=== PATIENT | female | born 1960 | race Two or more races ===

== ENCOUNTER → 2017-12-28 12:53 | Outpatient (CLI) | payer SELFPAY ==
[2017-12-28 12:55] LABS: Mucous, Urine 0 SEEN /hpf (<or=2+)
[2017-12-28 12:58] LABS: Color, Urine Yellow (Yellow); Glucose, Dipstick Normal (Normal); Ketone-Dipstick Negative (Negative); Leukocyte Esterase-Dipstick 500 /ul (Negative); Nitrite-Dipstick Positive (Negative); Occult Blood-Urine 150 /ul (Negative); Protein-Dipstick Negative (Negative); Specific Gravity, Urine 1.005 (1.002-1.030); Urine Bilirubin Dipstick 6 mg/dL (Negative); Urine Clarity Sl. Cloudy (Clear); Urine Urobilinogen 8 mg/dl (Normal)
[2017-12-28 13:09] LABS: Red Blood Cells-Urine 10-25 SEEN /hpf (0-5); White Blood Cells >100 SEEN /hpf (0-5)
[2017-12-28 13:10] LABS: Bacteria 1+ /hpf (None Seen); Squamous Epithelial Cells - UA 5-10 SEEN /hpf (5-10)
== END ==
PROVIDERS: Family Provider Family Medicine; PCP Family Medicine; Visit Provider Internal Medicine
DX: N39.0 Urinary tract infection, site not specified (principal)
CPT/HCPCS: 81001; 87086; 87088; 87186

== ENCOUNTER → 2018-12-16 11:14 | Outpatient (CLI) | payer SELFPAY ==
[2018-12-16 09:06] VITALS: BMI 33.3
[2018-12-16 11:17] LABS: Bacteria 0 SEEN /hpf (None Seen); Mucous, Urine 0 SEEN /hpf (<or=2+); Red Blood Cells-Urine 0 SEEN /hpf (0-5); Squamous Epithelial Cells - UA 0 SEEN /hpf (5-10)
[2018-12-16 12:39] LABS: Glucose, Dipstick Normal (Normal); Ketone-Dipstick Negative (Negative); Leukocyte Esterase-Dipstick 100 /ul (Negative); Nitrite-Dipstick Positive (Negative); Occult Blood-Urine Negative /ul (Negative); Protein-Dipstick Negative (Negative); Urine Clarity Clear (Clear); Urine Urobilinogen 8 mg/dl (Normal)
[2018-12-16 12:49] LABS: Color, Urine SEE COMMENT BELOW (Yellow); Urine Bilirubin Dipstick 6 mg/dL (Negative)
[2018-12-16 12:58] LABS: White Blood Cells 5-10 SEEN /hpf (0-5)
== END ==
PROVIDERS: Family Provider Internal Medicine; PCP Internal Medicine; Visit Provider Nurse Practitioner Family
DX: N30.00 Acute cystitis without hematuria (principal)
CPT/HCPCS: 81001; 87086; 87088; 87186

== ENCOUNTER 2019-03-10 09:30 | Outpatient (RCR) | payer SELFPAY ==
[2018-12-16 09:06] VITALS: BMI 33.3
[2019-02-24 11:20] VITALS: BP 147/85; PULSE 66; RESP 16; TEMP 36.9; BMI 33.3
--- NOTE | 2019-02-24 13:25 | PCM.WC.HP ---
(1) Ulcer of left lower extremity Status: Acute Current Visit: Yes Code(s): L97.929 - Non-pressure chronic ulcer of unspecified part of left lower leg with unspecified severity (2) Venous insufficiency Status: Acute Current Visit: Yes Code(s): I87.2 - Venous insufficiency (chronic) (peripheral) (3) Pain of left lower extremity Status: Acute Current Visit: Yes Code(s): M79.605 - Pain in left leg (4) Lower extremity edema Status: Acute Current Visit: Yes Code(s): R60.0 - Localized edema History of Present Illness Date of Service: 02/24/19 Chief Complaint: ulcer left lateral foot History of Wound: This 58-year-old female was referred to the wound healing center for a nonhealing ulcer to the left lateral foot. She said she noticed the area open a few weeks ago and says that it is stayed about the same since then. She denies noticing any signs of infection to the area. She admits to having compression stockings, but says she does not wear them like she is supposed to. She used to see Dr. Courtney in the past for issues with her veins and they have discussed a vein stripping surgery, however patient has never proceeded with having this done yet. She has been keeping the area dressed. She currently denies any feelings of nausea, vomiting, fever, chills. Past Medical History Past Medical History: Chronic Problems (Last Reviewed 12/28/17 @ 10:21 by Corinna Jackson) Seasonal allergies (Chronic) Allergies/Adverse Reactions: Allergies No Known Allergies Allergy (Verified 02/24/19 11:35) amoxycillin Allergy (Severe, Uncoded 11/06/17 09:00) rash Home Medications: Ambulatory Orders Medication Instructions Recorded Cranberry 400 mg PO DAILY 11/04/16 nitrofurantoin 100 mg PO BID #10 cap 12/16/18 monohydrate/macrocrystals 100 mg capsule Smoking Status: Never smoker Review of Systems Constitutional: Denies: Chills, Fever, Weight Change Cardiovascular: Denies: Chest Pain, Palpitations Respiratory: Denies: Cough, Shortness of Breath Gastrointestinal: Denies: Diarrhea, Nausea, Vomiting Skin: Reports: - - Ulcer left lower leg/foot - Physical Exam Vital Signs Temp Pulse Resp BP 98.4 F 66 16 147/85 H 02/24/19 11:20 02/24/19 11:20 02/24/19 11:20 02/24/19 11:20 General: Alert, Oriented x3, Cooperative, No apparent distress Extremities: No cyanosis, Capillary Refill Less than 3 Seconds, No Calf Tenderness - Negative Darlene and Mg signs, Edema - Bilateral lower extremity edema, Peripheral Pulses Normal - DP and PT pulses palpable bilateral Skin: Ulcer/ Wound - Ulcer to left lateral foot just distal to the left lateral malleolus with fat layer exposed. Base is a mixture of granular tissue, adherent slough, fibrin, biofilm. There is no probing to bone, no tracking, no undermining, no surrounding cellulitis, no significant increase in warmth, and no malodor at this time. There is surrounding hemosiderin skin deposit color change noted. Bilateral lower extremity varicosities noted with left being worse than right. Wound Measurements and Assessment WC - Nurse 1 - General Ulcer Measurement Start: 02/24/19 11:17 Freq: Status: Active Protocol: Activity Type Activity Date Activity User E-Sign Co-Sign Detail Recorded Client Recorded Date Recorded By Document 02/24/19 11:20 [facility] [id number] 02/24/19 11:27 [facility] 02/24/19 11:20 Wound Center Nurse 1 [Ulcer Assessment] #1- L LAT FOOT/ANKLE CLUSTER -Combined with other wound No -Current Size (cm) - Length 0.3 -Current Size (cm) - Width 0.4 -Current Size (cm) - Depth 0.2 -Total Square Cm 0.12 -Date of Last Picture (Recall this 02/24/19 field) -Photo Taken Yes -Epithelialization None Present -Tunneling No -Undermining/Tunneling No -Circular Undermining No -Exudate Amt None Present -Wound Margin Flat & Intact -Granulation Amt None Present (0 %) -Slough/Fibrin Yes -Necrosis Amt Small (1-33%) -Necrotic Tissue Type Eschar -Texture (Tess-wound Skin Appearance) Assessed, Scarring -Moisture (Tess-wound Skin Appearance Assessed,Dry/ ) Scaly -Color (Tess-wound Skin Appearance) Assessed, Erythema -Temperature (Tess-wound Skin No Abnormality Appearance) (Pt Warm) -Tenderness on Palpation (Tess-wound Yes Skin Appearance) -Ulcer Cleansing Rinsed/ Irrigated with Saline -Foul Odor after Cleansing No -Anesthetic Used 5% Lidocaine Gel [Edema Assessment] -Lower Limb Edema Present Yes -Right Calf (cm) 42.5 -Right Ankle (cm) 24 -Left Calf (cm) 41.5 -Left Ankle (cm) 24 BENNY - Nurse 2 - General Ulcer CM Notes Start: 02/24/19 11:17 Freq: Status: Active Protocol: Activity Type Activity Date Activity User E-Sign Co-Sign Detail Recorded Client Recorded Date Recorded By Document 02/24/19 11:40 [id number] 02/24/19 11:41 02/24/19 11:40 Wound Center Nurse 2 [Procedure/Treatment] #1- L LAT FOOT/ANKLE CLUSTER -Time 11:40 -Correct Patient Yes -Correct Side, Site, Position Yes -Correct Procedure Yes -Procedure Performed Yes -Type of Procedure Debridement -Clinical Debridement Subcutaneous -Post Debridement Size (cm) - Length 0.4 -Post Debridement Size (cm) - Width 0.4 -Post Debridement Size (cm) - Depth 0.2 -Total Square Cm 0.16 -Wound/Ulcer Outcome Not Healed -Ulcer Cleansing Rinsed/ Irrigated with Saline -Foul Odor after Cleansing No -Bioengineered Tissue No -Bleeding Controlled with Pressure -Offloading No -Treatment Response Procedure Tolerated Well [See Physician Procedure note for Specifics] Pain Scale: 0-10 Numeric [Pain] -Is Patient Pain Free? Yes Musculoskeletal: Tenderness - With manipulation of ulcer site Neurological: Sensory exam intact to light touch and pain Psych/Mental Status: Normal Affect, Appropriate Debridement Note Post-Debridement Measurements/Treatment - Nurse 2 - General Ulcer CM Notes Start: 02/24/19 11:17 Freq: Status: Active Protocol: Activity Type Activity Date Activity User E-Sign Co-Sign Detail Recorded Client Recorded Date Recorded By Document 02/24/19 11:40 JF [id number] 02/24/19 11:41 02/24/19 11:40 Wound Center Nurse 2 #1- L LAT FOOT/ANKLE CLUSTER -Time 11:40 -Correct Patient Yes -Correct Side, Site, Position Yes -Correct Procedure Yes -Procedure Performed Yes -Type of Procedure Debridement -Clinical Debridement Subcutaneous -Post Debridement Size (cm) - Length 0.4 -Post Debridement Size (cm) - Width 0.4 -Post Debridement Size (cm) - Depth 0.2 -Total Square Cm 0.16 -Wound/Ulcer Outcome Not Healed -Ulcer Cleansing Rinsed/ Irrigated with Saline -Foul Odor after Cleansing No -Bioengineered Tissue No -Bleeding Controlled with Pressure -Offloading No -Treatment Response Procedure Tolerated Well Pain Scale: 0-10 Numeric Is Patient Pain Free? Yes Wound debrided: Left lateral foot Laterality: Left Type of Debridement: Excisional debridement Anesthesia Used: 4% Lidocaine Solution Depth: in the subcutaneous layer Percentage of wound debrided: 100 Instrument Used: - - 1 mm curette Tissue Removed: Adherent slough, fibrin, biofilm Severity: Fat Layer Exposed Amount of bleeding with debridement: Mild Bleeding Controlled with: Pressure Patient tolerated procedure well Assessment/Plan Active Problems (Last Reviewed 12/28/17 @ 10:21 by Corinna Jackson) Ulcer of left lower extremity (Acute) Venous insufficiency (Acute) Pain of left lower extremity (Acute) Lower extremity edema (Acute) Assessment: As noted above Plan: Initial patient examination evaluation was performed. A subcutaneous debridement was performed as noted in the clinical panel. Once complete, and Unna boot applied was applied to the left lower extremity. The importance of keeping the ulcer site offloaded and keeping pressure/friction from the site was discussed in great detail. The importance of lower extremity compression as well as keeping her legs elevated all times while seated or lying down was stressed again as well. Currently there are no signs of local infection, so no cultures or antibiotics were prescribed today. Bilateral venous Doppler examination was ordered and we will continue to monitor for results from this testing. We will also discuss referral to vascular surgery as well. Recommend a diet high in protein to help optimize ulcer healing potential. The patient was educated on all signs and symptoms of local and systemic infection she was instructed to go to the emergency room immediately should she notice any of these. She is also instructed to either call the wound healing center go to the emergency room should she have any issues with her Unna boot. All questions were answered to the patient's satisfaction. The patient will follow back up in clinic with me in 1 week to check on progress, but was instructed to follow-up sooner if needed before then.
--- NOTE | 2019-03-02 09:12 | VDLE_ITS ---
Reason For Study: Edema RIGHT LEFT CFV is compressible, spontaneous, phasic, CFV is compressible, spontaneous, phasic, competent and demonstrates normal competent, and demonstrates normal augmentation. augmentation. FV is compressible, spontaneous, phasic, FV is compressible, spontaneous, phasic, competent and demonstrates normal competent and demonstrates normal augmentation. augmentation. POP V is compressible, spontaneous, phasic, POP V is compressible, spontaneous, phasic, competent and demonstrates normal competent and demonstrates normal augmentation. augmentation. T/P Trunk is compressible. T/P Trunk is compressible. PTV is compressible. PTV is compressible. RT PerV is compressible. LT PerV is compressible. SFJ is competent and measures 0.53 x 0.69 cm. SFJ is INCOMPETENT and measures 1.25 x 1.24 GSV is competent and measures 0.40 x 0.39 cm cm. in prox thigh and 0.21 x 0.23 cm at knee. GSV is INCOMPETENT throughout for greater ASV in upper medial thigh is INCOMPETENT for than 0.5 seconds and measures 0.34 x 0.38 cm greater than 0.5 seconds and measures0.19 x in prox thigh and 0.60 x 0.60 cm at knee. 0.18 cm. INCOMPETENT milk pickup driver noted 12 cm above the SSV is competent and measures 0.24 x 0.24 cm. medial malleolus. Procedure SSV is competent and measures 0.21 x 0.22 cm. Exam performed in department. Patient was scanned in reverse Trendelenburg position during reflux assessment. A preliminary report was called and/or faxed to [facility]. Interpretation Summary Deep veins of the lower extremities are bilaterally patent and compressible segmentally. There is no evidence of deep vein thrombosis on either side. Valvular competence appears intact within the proximal deep venous systems bilaterally. The greater saphenous veins appear bilaterally patent and compressible segmentally. The right sapheno-femoral junction is competent . The left sapheno-femoral junction is incompetent . The right greater saphenous vein appears segmentally competent. The left greater saphenous vein appears segmentally incompetent. Small saphenous veins are patent and competent bilaterally. The right accessory saphenous vein in the upper medial thigh is incompetent. An incompetent milk pickup driver vein is identified in the left calf, located 12 centimeters proximal to the left medial malleolus. Ordering Physician: Ross Thayer Referring Physician: Adrian Muse Performed By: Lexie Faustin RVT
[2019-03-03 11:02] VITALS: BP 149/73; PULSE 65; RESP 18; TEMP 36.6
--- NOTE | 2019-03-03 12:05 | PCM.WC.PN ---
(1) Ulcer of left lower extremity Status: Acute Current Visit: Yes Code(s): L97.929 - Non-pressure chronic ulcer of unspecified part of left lower leg with unspecified severity (2) Venous insufficiency Status: Acute Current Visit: Yes Code(s): I87.2 - Venous insufficiency (chronic) (peripheral) (3) Pain of left lower extremity Status: Acute Current Visit: Yes Code(s): M79.605 - Pain in left leg (4) Lower extremity edema Status: Acute Current Visit: Yes Code(s): R60.0 - Localized edema Type of Wound Date of Service: 03/03/19 Chief Complaint: ulcer left lateral foot History of Wound: This 58-year-old female was referred to the wound healing center for a nonhealing ulcer to the left lateral foot. She said she noticed the area open a few weeks ago and says that it is stayed about the same since then. She denies noticing any signs of infection to the area. She admits to having compression stockings, but says she does not wear them like she is supposed to. She used to see Dr. Courtney in the past for issues with her veins and they have discussed a vein stripping surgery, however patient has never proceeded with having this done yet. She has been keeping the area dressed. She currently denies any feelings of nausea, vomiting, fever, chills. Progress of Wound: Ulcer stable this week. - Physical Exam Vital Signs Temp Pulse Resp BP 98 F 65 18 149/73 H 03/03/19 11:02 03/03/19 11:02 03/03/19 11:02 03/03/19 11:02 General: Alert, Oriented x3, Cooperative, No apparent distress Extremities: No cyanosis, Capillary Refill Less than 3 Seconds, No Calf Tenderness - Negative Darlene and Mg signs, Edema - Bilateral lower extremity edema, Peripheral Pulses Normal - DP and PT pulses palpable bilateral Skin: Ulcer/ Wound - Ulcer to left lateral foot just distal to the left lateral malleolus with fat layer exposed. Base is a mixture of granular tissue, adherent slough, fibrin, biofilm. There is no probing to bone, no tracking, no undermining, no surrounding cellulitis, no significant increase in warmth, and no malodor at this time. There is surrounding hemosiderin skin deposit color change noted. Bilateral lower extremity varicosities noted with left being worse than right. Wound Measurements and Assessment - Nurse 1 - General Ulcer Measurement Start: 02/24/19 11:17 Freq: Status: Active Protocol: Activity Type Activity Date Activity User E-Sign Co-Sign Detail Recorded Client Recorded Date Recorded By Document 03/03/19 11:02 MT [id number] 03/03/19 11:10 [place] 03/03/19 11:02 Wound Center Nurse 1 [Ulcer Assessment] #1- L LAT FOOT/ANKLE CLUSTER -Current Size (cm) - Length 0.3 -Current Size (cm) - Width 0.9 -Current Size (cm) - Depth 0.3 -Total Square Cm 0.27 -Exudate Amt Small -Exudate Type Purulent -Wound Margin Thickened & Rolled Under -Granulation Amt None Present (0 %) -Slough/Fibrin Yes -Necrosis Amt Large (67-100%) -Texture (Tess-wound Skin Appearance) Assessed -Moisture (Tess-wound Skin Appearance Assessed ) -Color (Tess-wound Skin Appearance) Assessed -Temperature (Tess-wound Skin No Abnormality Appearance) (Pt Warm) -Tenderness on Palpation (Tess-wound No Skin Appearance) -Ulcer Cleansing Rinsed/ Irrigated with Saline -Foul Odor after Cleansing No -Anesthetic Used 5% Lidocaine Gel [Edema Assessment] -Left Calf (cm) 41 -Left Ankle (cm) 23 - Nurse 2 - General Ulcer CM Notes Start: 02/24/19 11:17 Freq: Status: Active Protocol: Activity Type Activity Date Activity User E-Sign Co-Sign Detail Recorded Client Recorded Date Recorded By Document 03/03/19 11:22 AN [id number] 03/03/19 11:24 AN 03/03/19 11:22 Wound Center Nurse 2 [Procedure/Treatment] #1- L LAT FOOT/ANKLE CLUSTER -Time 11:23 -Correct Patient Yes -Correct Side, Site, Position Yes -Correct Procedure Yes -Procedure Performed Yes -Type of Procedure Debridement -Clinical Debridement Subcutaneous -Post Debridement Size (cm) - Length 0.3 -Post Debridement Size (cm) - Width 0.6 -Post Debridement Size (cm) - Depth 0.2 -Total Square Cm 0.18 -Wound/Ulcer Outcome Not Healed -Ulcer Cleansing Rinsed/ Irrigated with Saline -Foul Odor after Cleansing No -Bioengineered Tissue No -Bleeding Controlled with Pressure -Offloading Yes -Treatment Response Procedure Tolerated Well [See Physician Procedure note for Specifics] Pain Scale: 0-10 Numeric [Pain] -Is Patient Pain Free? Yes Musculoskeletal: Tenderness - With manipulation of ulcer site Neurological: Sensory exam intact to light touch and pain Psych/Mental Status: Normal Affect, Appropriate Debridement Note Post-Debridement Measurements/Treatment WC - Nurse 2 - General Ulcer CM Notes Start: 02/24/19 11:17 Freq: Status: Active Protocol: Activity Type Activity Date Activity User E-Sign Co-Sign Detail Recorded Client Recorded Date Recorded By Document 02/24/19 11:40 JF [id number] 02/24/19 11:41 JF Document 03/03/19 11:22 AN [id number] 03/03/19 11:24 AN 02/24/19 03/03/19 11:40 11:22 Wound Center Nurse 2 #1- L LAT FOOT/ANKLE CLUSTER -Time 11:40 11:23 -Correct Patient Yes Yes -Correct Side, Site, Position Yes Yes -Correct Procedure Yes Yes -Procedure Performed Yes Yes -Type of Procedure Debridement Debridement -Clinical Debridement Subcutaneous Subcutaneous -Post Debridement Size (cm) - Length 0.4 0.3 -Post Debridement Size (cm) - Width 0.4 0.6 -Post Debridement Size (cm) - Depth 0.2 0.2 -Total Square Cm 0.16 0.18 -Wound/Ulcer Outcome Not Healed Not Healed -Ulcer Cleansing Rinsed/ Rinsed/ Irrigated with Irrigated with Saline Saline -Foul Odor after Cleansing No No -Bioengineered Tissue No No -Bleeding Controlled with Pressure Pressure -Offloading No Yes -Treatment Response Procedure Procedure Tolerated Well Tolerated Well Pain Scale: 0-10 Numeric Is Patient Pain Free? Yes Yes Wound debrided: Left lateral foot Laterality: Left Type of Debridement: Excisional debridement Anesthesia Used: 5% Lidocaine Gel Depth: in the subcutaneous layer Percentage of wound debrided: 100 Instrument Used: - - 1 mm curette Tissue Removed: Adherent slough, fibrin, biofilm Severity: Fat Layer Exposed Amount of bleeding with debridement: Mild Bleeding Controlled with: Pressure Patient tolerated procedure well Assessment/Plan Active Problems (Last Reviewed 12/28/17 @ 10:21 by Corinna Jackson) Ulcer of left lower extremity (Acute) Venous insufficiency (Acute) Pain of left lower extremity (Acute) Lower extremity edema (Acute) Assessment: As noted above Plan: Patient was carefully examined and evaluated again today. A subcutaneous debridement was performed as noted in the clinical panel. Once complete, another Unna boot applied was applied to the left lower extremity. The patient tolerated this well over the last week. The importance of keeping the ulcer site offloaded and keeping pressure/friction from the site was discussed in great detail. The importance of lower extremity compression as well as keeping her legs elevated all times while seated or lying down was stressed again as well. Bilateral venous Doppler examination completed that showed incompetent veins in the lower extremity near the ulcer site. Full detailed report in patient's chart. Patient will be referred to Dr. Frank with vascular surgery to further evaluate this patient. Recommend a diet high in protein to help optimize ulcer healing potential. The patient was educated on all signs and symptoms of local and systemic infection she was instructed to go to the emergency room immediately should she notice any of these. All questions were answered to the patient's satisfaction. The patient will follow back up in clinic with me in 1 week to check on progress, but was instructed to follow-up sooner if needed before then.
[2019-03-07 12:38] VITALS: BP 157/79; PULSE 66; RESP 16; TEMP 36.4; BMI 33.3
[2019-03-10 09:56] VITALS: BP 128/65; PULSE 70; RESP 18; TEMP 37; BMI 33.3
--- NOTE | 2019-03-10 11:02 | PN.PCM_ITS ---
(1) Ulcer of left lower extremity Status: Acute Current Visit: Yes Code(s): L97.929 - Non-pressure chronic ulcer of unspecified part of left lower leg with unspecified severity (2) Venous insufficiency Status: Acute Current Visit: Yes Code(s): I87.2 - Venous insufficiency (chronic) (peripheral) (3) Pain of left lower extremity Status: Acute Current Visit: Yes Code(s): M79.605 - Pain in left leg (4) Lower extremity edema Status: Acute Current Visit: Yes Code(s): R60.0 - Localized edema Type of Wound Date of Service: 03/10/19 Chief Complaint: ulcer left lateral foot History of Wound: This 58-year-old female was referred to the wound healing center for a nonhealing ulcer to the left lateral foot. She said she noticed the area open a few weeks ago and says that it is stayed about the same since then. She denies noticing any signs of infection to the area. She admits to having compression stockings, but says she does not wear them like she is supposed to. She used to see Dr. Courtney in the past for issues with her veins and they have discussed a vein stripping surgery, however patient has never proceeded with having this done yet. She has been keeping the area dressed. She currently denies any feelings of nausea, vomiting, fever, chills. Progress of Wound: Ulcer stable. - Physical Exam Vital Signs Temp Pulse Resp BP 98.6 F 70 18 128/65 H 03/10/19 09:56 03/10/19 09:56 03/10/19 09:56 03/10/19 09:56 General: Alert, Oriented x3, Cooperative, No apparent distress Extremities: No cyanosis, Capillary Refill Less than 3 Seconds, No Calf Tenderness - Negative Darlene and Mg signs, Edema - Bilateral lower extremity edema, Peripheral Pulses Normal - DP and PT pulses palpable bilateral Skin: Ulcer/ Wound - Ulcer to left lateral foot just distal to the left lateral malleolus with fat layer exposed. Base is a mixture of granular tissue, adherent slough, fibrin, biofilm. There is no probing to bone, no tracking, no undermining, no surrounding cellulitis, no significant increase in warmth, and no malodor at this time. There is surrounding hemosiderin skin deposit color change noted. Bilateral lower extremity varicosities noted with left being worse than right. Wound Measurements and Assessment WC - Nurse 1 - General Ulcer Measurement Start: 02/24/19 11:17 Freq: Status: Active Protocol: Activity Type Activity Date Activity User E-Sign Co-Sign Detail Recorded Client Recorded Date Recorded By Document 03/07/19 12:38 [facility] [id number] 03/07/19 12:39 BM Document 03/10/19 09:56 RB [id number] 03/10/19 10:04 RB 03/07/19 03/10/19 12:38 09:56 [Ulcer Assessment] #1- L LAT FOOT/ANKLE CLUSTER -Combined with other wound No -Current Size (cm) - Length 0.3 -Current Size (cm) - Width 0.5 -Current Size (cm) - Depth 0.2 -Total Square Cm 0.15 -Tunneling No -Undermining/Tunneling No -Circular Undermining No -Exudate Amt Small -Exudate Type Serosanguineous -Wound Margin Distinct, Outline Attached -Granulation Amt Medium (34-66%) -Granulation Quality [place] -Slough/Fibrin Yes -Necrosis Amt Small (1-33%) -Necrotic Tissue Type Adherent Slough -Structure Exposed N/A -Texture (Tess-wound Skin Appearance) Assessed -Moisture (Tess-wound Skin Appearance Assessed ) -Color (Tess-wound Skin Appearance) Assessed -Temperature (Tess-wound Skin No Abnormality Appearance) (Pt Warm) -Tenderness on Palpation (Tess-wound No Skin Appearance) -Ulcer Cleansing Wound Cleanser -Foul Odor after Cleansing No -Anesthetic Used 5% Lidocaine Gel Wound Center Nurse 1 [Edema Assessment] -Lower Limb Edema Present Yes Yes -Right Calf (cm) 41.5 -Right Ankle (cm) 24.1 -Left Calf (cm) 40.4 -Left Ankle (cm) 22.8 WC - Nurse 2 - General Ulcer CM Notes Start: 02/24/19 11:17 Freq: Status: Active Protocol: Activity Type Activity Date Activity User E-Sign Co-Sign Detail Recorded Client Recorded Date Recorded By Document 03/10/19 10:31 AN [id number] 03/10/19 10:34 AN 03/10/19 10:31 Wound Center Nurse 2 [Procedure/Treatment] #1- L LAT FOOT/ANKLE CLUSTER -Time 10:33 -Correct Patient Yes -Correct Side, Site, Position Yes -Correct Procedure Yes -Procedure Performed Yes -Type of Procedure Debridement -Clinical Debridement Subcutaneous -Post Debridement Size (cm) - Length 0.3 -Post Debridement Size (cm) - Width 0.6 -Post Debridement Size (cm) - Depth 0.2 -Total Square Cm 0.18 -Wound/Ulcer Outcome Not Healed -Ulcer Cleansing Rinsed/ Irrigated with Saline -Foul Odor after Cleansing No -Bioengineered Tissue No -Bleeding Controlled with Pressure -Offloading Yes -Treatment Response Procedure Tolerated Well [See Physician Procedure note for Specifics] Pain Scale: 0-10 Numeric [Pain] -Is Patient Pain Free? Yes Musculoskeletal: Tenderness - With manipulation of ulcer site Neurological: Sensory exam intact to light touch and pain Psych/Mental Status: Normal Affect, Appropriate Debridement Note Post-Debridement Measurements/Treatment WC - Nurse 2 - General Ulcer CM Notes Start: 02/24/19 11:17 Freq: Status: Active Protocol: Activity Type Activity Date Activity User E-Sign Co-Sign Detail Recorded Client Recorded Date Recorded By Document 02/24/19 11:40 [id number] 02/24/19 11:41 Document 03/03/19 11:22 AN [id number] 03/03/19 11:24 AN Document 03/10/19 10:31 AN [id number] 03/10/19 10:34 AN 02/24/19 03/03/19 03/10/19 11:40 11:22 10:31 Wound Center Nurse 2 #1- L LAT FOOT/ANKLE CLUSTER -Time 11:40 11:23 10:33 -Correct Patient Yes Yes Yes -Correct Side, Site, Position Yes Yes Yes -Correct Procedure Yes Yes Yes -Procedure Performed Yes Yes Yes -Type of Procedure Debridement Debridement Debridement -Clinical Debridement Subcutaneous Subcutaneous Subcutaneous -Post Debridement Size (cm) - Length 0.4 0.3 0.3 -Post Debridement Size (cm) - Width 0.4 0.6 0.6 -Post Debridement Size (cm) - Depth 0.2 0.2 0.2 -Total Square Cm 0.16 0.18 0.18 -Wound/Ulcer Outcome Not Healed Not Healed Not Healed -Ulcer Cleansing Rinsed/ Rinsed/ Rinsed/ Irrigated with Irrigated with Irrigated with Saline Saline Saline -Foul Odor after Cleansing No No No -Bioengineered Tissue No No No -Bleeding Controlled with Pressure Pressure Pressure -Offloading No Yes Yes -Treatment Response Procedure Procedure Procedure Tolerated Well Tolerated Well Tolerated Well Pain Scale: 0-10 Numeric Is Patient Pain Free? Yes Yes Yes Wound debrided: Left lateral foot Laterality: Left Type of Debridement: Excisional debridement Anesthesia Used: 5% Lidocaine Gel Depth: in the subcutaneous layer Percentage of wound debrided: 100 Instrument Used: - - 1 mm curette Tissue Removed: Adherent slough, fibrin, biofilm Severity: Fat Layer Exposed Amount of bleeding with debridement: Mild Bleeding Controlled with: Pressure Patient tolerated procedure well Assessment/Plan Active Problems (Last Reviewed 12/28/17 @ 10:21 by Corinna Jackson) Ulcer of left lower extremity (Acute) Venous insufficiency (Acute) Pain of left lower extremity (Acute) Lower extremity edema (Acute) Assessment: As noted above Plan: Patient was carefully examined and evaluated again today. A subcutaneous debridement was performed as noted in the clinical panel. Once complete, the ulcer site was dressed with Margie to the base followed by dry sterile dressing and overlying compression. She is to continue with dressing changes in this manner on a daily basis. The importance of keeping the ulcer site offloaded and keeping pressure/friction from the site was discussed in great detail. The importance of lower extremity compression as well as keeping her legs elevated all times while seated or lying down was stressed again as well. Bilateral venous Doppler examination completed that showed incompetent veins in the lower extremity near the ulcer site. Full detailed report in patient's chart. Will check on status of referral to Dr. Frank's office. Recommend a diet high in protein to help optimize ulcer healing potential. The patient was educated on all signs and symptoms of local and systemic infection she was instructed to go to the emergency room immediately should she notice any of these. All questions were answered to the patient's satisfaction. The patient will follow back up in clinic with me in 1 week to check on progress, but was instructed to follow- up sooner if needed before then.
== END 2019-03-16 23:59 ==
LOC: WC 09:30
PROVIDERS: Family Provider Internal Medicine; PCP Internal Medicine; Referring Provider Podiatrist; Visit Provider Podiatrist
DX: I83.023 Varicose veins of left lower extremity with ulcer of ankle (principal); I87.2 Venous insufficiency (chronic) (peripheral); R60.0 Localized edema; M79.605 Pain in left leg; L97.322 Non-pressure chronic ulcer of left ankle with fat layer exposed; I83.91 Asymptomatic varicose veins of right lower extremity
CPT/HCPCS: 11042; 29580; 93970; 99212; 99213; G0463

== ENCOUNTER 2019-04-07 09:00 | Outpatient (RCR) | payer SELFPAY ==
[2019-03-17 01:11] VITALS: BP 128/65; PULSE 70; RESP 18; TEMP 37
[2019-03-17 09:23] VITALS: BP 111/67; PULSE 70; RESP 16; TEMP 36.7; BMI 33.3
--- NOTE | 2019-03-17 10:22 | PCM.WC.PN ---
(1) Ulcer of left lower extremity Status: Acute Current Visit: No Code(s): L97.929 - Non-pressure chronic ulcer of unspecified part of left lower leg with unspecified severity (2) Venous insufficiency Status: Acute Current Visit: No Code(s): I87.2 - Venous insufficiency (chronic) (peripheral) (3) Pain of left lower extremity Status: Acute Current Visit: No Code(s): M79.605 - Pain in left leg (4) Lower extremity edema Status: Acute Current Visit: No Code(s): R60.0 - Localized edema Type of Wound Date of Service: 03/17/19 Chief Complaint: ulcer left lateral foot History of Wound: This 58-year-old female was referred to the wound healing center for a nonhealing ulcer to the left lateral foot. She said she noticed the area open a few weeks ago and says that it is stayed about the same since then. She denies noticing any signs of infection to the area. She admits to having compression stockings, but says she does not wear them like she is supposed to. She used to see Dr. Courtney in the past for issues with her veins and they have discussed a vein stripping surgery, however patient has never proceeded with having this done yet. She has been keeping the area dressed. She currently denies any feelings of nausea, vomiting, fever, chills. Progress of Wound: Ulcer stable again this week. - Physical Exam Vital Signs Temp Pulse Resp BP 98.0 F 70 16 111/67 03/17/19 09:23 03/17/19 09:23 03/17/19 09:23 03/17/19 09:23 General: Alert, Oriented x3, Cooperative, No apparent distress Extremities: Capillary Refill Less than 3 Seconds, No Calf Tenderness - Negative Darlene and Mg signs, Edema - Bilateral lower extremity edema, Peripheral Pulses Normal - DP and PT pulses palpable bilateral Skin: Ulcer/ Wound - Ulcer to left lateral foot just distal to the left lateral malleolus with fat layer exposed. Base is a mixture of granular tissue, adherent slough, fibrin, biofilm. There is no probing to bone, no tracking, no undermining, no surrounding cellulitis, no significant increase in warmth, and no malodor at this time. There is surrounding hemosiderin skin deposit color change noted. Bilateral lower extremity varicosities noted with left being worse than right. Wound Measurements and Assessment WC - Nurse 1 - General Ulcer Measurement Start: 03/17/19 09:23 Freq: Status: Active Protocol: Activity Type Activity Date Activity User E-Sign Co-Sign Detail Recorded Client Recorded Date Recorded By Document 03/17/19 09:23 BS [id number] 03/17/19 09:30 BS 03/17/19 09:23 Wound Center Nurse 1 [Ulcer Assessment] #1- L LAT FOOT/ANKLE CLUSTER -Current Size (cm) - Length 0.4 -Current Size (cm) - Width 0.6 -Current Size (cm) - Depth 0.2 -Total Square Cm 0.24 -Photo Taken No -Texture (Tess-wound Skin Appearance) Assessed, Scarring -Moisture (Tess-wound Skin Appearance Assessed ) -Color (Tess-wound Skin Appearance) Assessed, Hemosiderin Staining -Temperature (Tess-wound Skin No Abnormality Appearance) (Pt Warm) -Tenderness on Palpation (Tess-wound No Skin Appearance) -Ulcer Cleansing Rinsed/ Irrigated with Saline -Foul Odor after Cleansing No -Anesthetic Used 5% Lidocaine Gel [Edema Assessment] -Point of measurement (cm from the 38.0 medial instep) -Point of Measurement (cm from the 23.0 medial instep) WC - Nurse 2 - General Ulcer CM Notes Start: 03/17/19 09:23 Freq: Status: Active Protocol: Activity Type Activity Date Activity User E-Sign Co-Sign Detail Recorded Client Recorded Date Recorded By Document 03/17/19 09:39 AN [id number] 03/17/19 09:40 AN 03/17/19 09:39 Wound Center Nurse 2 [Procedure/Treatment] #1- L LAT FOOT/ANKLE CLUSTER -Time 09:39 -Correct Patient Yes -Correct Side, Site, Position Yes -Correct Procedure Yes -Procedure Performed Yes -Type of Procedure Debridement -Clinical Debridement Subcutaneous -Post Debridement Size (cm) - Length 0.4 -Post Debridement Size (cm) - Width 0.5 -Post Debridement Size (cm) - Depth 0.2 -Total Square Cm 0.20 -Wound/Ulcer Outcome Not Healed -Ulcer Cleansing Rinsed/ Irrigated with Saline -Foul Odor after Cleansing No -Bioengineered Tissue No -Bleeding Controlled with Pressure -Offloading No -Treatment Response Procedure Tolerated Well [See Physician Procedure note for Specifics] Pain Scale: 0-10 Numeric [Pain] -Is Patient Pain Free? Yes Musculoskeletal: Tenderness - With manipulation of ulcer site Neurological: Sensory exam intact to light touch and pain Psych/Mental Status: Normal Affect, Appropriate Debridement Note Post-Debridement Measurements/Treatment WC - Nurse 2 - General Ulcer CM Notes Start: 03/17/19 09:23 Freq: Status: Active Protocol: Activity Type Activity Date Activity User E-Sign Co-Sign Detail Recorded Client Recorded Date Recorded By Document 03/17/19 09:39 AN [id number] 03/17/19 09:40 AN 03/17/19 09:39 Wound Center Nurse 2 #1- L LAT FOOT/ANKLE CLUSTER -Time 09:39 -Correct Patient Yes -Correct Side, Site, Position Yes -Correct Procedure Yes -Procedure Performed Yes -Type of Procedure Debridement -Clinical Debridement Subcutaneous -Post Debridement Size (cm) - Length 0.4 -Post Debridement Size (cm) - Width 0.5 -Post Debridement Size (cm) - Depth 0.2 -Total Square Cm 0.20 -Wound/Ulcer Outcome Not Healed -Ulcer Cleansing Rinsed/ Irrigated with Saline -Foul Odor after Cleansing No -Bioengineered Tissue No -Bleeding Controlled with Pressure -Offloading No -Treatment Response Procedure Tolerated Well Pain Scale: 0-10 Numeric Is Patient Pain Free? Yes Wound debrided: Left lateral foot Laterality: Left Type of Debridement: Excisional debridement Anesthesia Used: 5% Lidocaine Gel Depth: in the subcutaneous layer Percentage of wound debrided: 100 Instrument Used: - - 1 mm curette Tissue Removed: Adherent slough, fibrin, biofilm Severity: Fat Layer Exposed Amount of bleeding with debridement: Mild Bleeding Controlled with: Pressure Patient tolerated procedure well Assessment/Plan Assessment: As noted above Plan: Patient was carefully examined and evaluated again today. A subcutaneous debridement was performed as noted in the clinical panel. Once complete, the ulcer site was dressed with another Unna boot followed by a compressive overlying dressing. She will come in Thursday to have this changed. The importance of keeping the ulcer site offloaded and keeping pressure/friction from the site was discussed in great detail. The importance of lower extremity compression as well as keeping her legs elevated all times while seated or lying down was stressed again as well. Bilateral venous Doppler examination completed that showed incompetent veins in the lower extremity near the ulcer site. Full detailed report in patient's chart. Patient has an appointment with Dr. Frank in approximately 3 weeks. Recommend a diet high in protein to help optimize ulcer healing potential. The patient was educated on all signs and symptoms of local and systemic infection she was instructed to go to the emergency room immediately should she notice any of these. All questions were answered to the patient's satisfaction. The patient will follow back up in clinic with me in 1 week to check on progress, but was instructed to follow-up sooner if needed before then.
[2019-03-21 14:27] VITALS: BP 142/72; PULSE 61; RESP 18; TEMP 37.2; BMI 33.3
[2019-03-24 09:50] VITALS: BP 140/72; PULSE 75; RESP 16; TEMP 36.8; BMI 33.3
--- NOTE | 2019-03-24 12:06 | PN.PCM_ITS ---
(1) Ulcer of left lower extremity Status: Acute Current Visit: No Code(s): L97.929 - Non-pressure chronic ulcer of unspecified part of left lower leg with unspecified severity (2) Venous insufficiency Status: Acute Current Visit: No Code(s): I87.2 - Venous insufficiency (chronic) (peripheral) (3) Pain of left lower extremity Status: Acute Current Visit: No Code(s): M79.605 - Pain in left leg (4) Lower extremity edema Status: Acute Current Visit: No Code(s): R60.0 - Localized edema Type of Wound Date of Service: 03/24/19 Chief Complaint: ulcer left lateral foot History of Wound: This 58-year-old female was referred to the wound healing center for a nonhealing ulcer to the left lateral foot. She said she noticed the area open a few weeks ago and says that it is stayed about the same since then. She denies noticing any signs of infection to the area. She admits to having compression stockings, but says she does not wear them like she is supposed to. She used to see Dr. Courtney in the past for issues with her veins and they have discussed a vein stripping surgery, however patient has never proceeded with having this done yet. She has been keeping the area dressed. She currently denies any feelings of nausea, vomiting, fever, chills. Progress of Wound: Ulcer stable - Physical Exam Vital Signs Temp Pulse Resp BP 98.2 F 75 16 140/72 H 03/24/19 09:50 03/24/19 09:50 03/24/19 09:50 03/24/19 09:50 General: Alert, Oriented x3, Cooperative, No apparent distress Extremities: Capillary Refill Less than 3 Seconds, No Calf Tenderness - Negative Darlene and Mg signs, Edema - Bilateral lower extremity edema, Peripheral Pulses Normal - DP and PT pulses palpable bilateral Skin: Ulcer/ Wound - Ulcer to left lateral foot just distal to the left lateral malleolus with fat layer exposed. Base is a mixture of granular tissue, adherent slough, fibrin, biofilm. There is no probing to bone, no tracking, no undermining, no surrounding cellulitis, no significant increase in warmth, and no malodor at this time. There is surrounding hemosiderin skin deposit color change noted. Bilateral lower extremity varicosities noted with left being wor se than right. Wound Measurements and Assessment WC - Nurse 1 - General Ulcer Measurement Start: 03/17/19 09:23 Freq: Status: Active Protocol: Activity Type Activity Date Activity User E-Sign Co-Sign Detail Recorded Client Recorded Date Recorded By Document 03/21/19 14:27 DV [id number] 03/21/19 14:30 DV Document 03/24/19 09:50 BS [id number] 03/24/19 09:57 BS 03/21/19 03/24/19 14:27 09:50 [Ulcer Assessment] #1- L LAT FOOT/ANKLE CLUSTER -Combined with other wound No -Current Size (cm) - Length 0.5 -Current Size (cm) - Width 0.7 -Current Size (cm) - Depth 0.2 -Total Square Cm 0.35 -Photo Taken No -Tunneling No -Exudate Amt None Present -Granulation Amt Small (1-33%) -Granulation Quality Pale,[place] -Texture (Tess-wound Skin Appearance) Assessed, Scarring -Moisture (Tess-wound Skin Appearance Assessed,Dry/ ) Scaly -Color (Tess-wound Skin Appearance) Assessed, Hemosiderin Staining -Temperature (Tess-wound Skin No Abnormality Appearance) (Pt Warm) -Tenderness on Palpation (Tess-wound Yes Skin Appearance) -Ulcer Cleansing Rinsed/ Irrigated with Saline -Foul Odor after Cleansing No -Anesthetic Used 5% Lidocaine Gel Wound Center Nurse 1 [Edema Assessment] -Lower Limb Edema Present No -Left Calf (cm) 43.5 -Left Ankle (cm) 23.5 WC - Nurse 2 - General Ulcer CM Notes Start: 03/17/19 09:23 Freq: Status: Active Protocol: Activity Type Activity Date Activity User E-Sign Co-Sign Detail Recorded Client Recorded Date Recorded By Document 03/24/19 10:17 AN [id number] 03/24/19 10:20 AN 03/24/19 10:17 Wound Center Nurse 2 [Procedure/Treatment] -Time 10:18 -Correct Patient Yes -Correct Side, Site, Position Yes -Correct Procedure Yes -Procedure Performed Yes -Type of Procedure Debridement -Clinical Debridement Subcutaneous -Post Debridement Size (cm) - Length 0.6 -Post Debridement Size (cm) - Width 0.8 -Post Debridement Size (cm) - Depth 0.2 -Total Square Cm 0.48 -Wound/Ulcer Outcome Not Healed -Ulcer Cleansing Rinsed/ Irrigated with Saline -Foul Odor after Cleansing No -Bioengineered Tissue No -Bleeding Controlled with Pressure -Offloading No -Treatment Response Procedure Tolerated Well [See Physician Procedure note for Specifics] Pain Scale: 0-10 Numeric [Pain] -Is Patient Pain Free? Yes Musculoskeletal: Tenderness - With ulcer site manipulation Neurological: Sensory exam intact to light touch and pain Psych/Mental Status: Normal Affect, Appropriate Debridement Note Post-Debridement Measurements/Treatment WC - Nurse 2 - General Ulcer CM Notes Start: 03/17/19 09:23 Freq: Status: Active Protocol: Activity Type Activity Date Activity User E-Sign Co-Sign Detail Recorded Client Recorded Date Recorded By Document 03/17/19 09:39 AN [id number] 03/17/19 09:40 AN Document 03/24/19 10:17 AN [id number] 03/24/19 10:20 AN 03/17/19 03/24/19 09:39 10:17 Wound Center Nurse 2 #1- L LAT FOOT/ANKLE CLUSTER -Time 09:39 10:18 -Correct Patient Yes Yes -Correct Side, Site, Position Yes Yes -Correct Procedure Yes Yes -Procedure Performed Yes Yes -Type of Procedure Debridement Debridement -Clinical Debridement Subcutaneous Subcutaneous -Post Debridement Size (cm) - Length 0.4 0.6 -Post Debridement Size (cm) - Width 0.5 0.8 -Post Debridement Size (cm) - Depth 0.2 0.2 -Total Square Cm 0.20 0.48 -Wound/Ulcer Outcome Not Healed Not Healed -Ulcer Cleansing Rinsed/ Rinsed/ Irrigated with Irrigated with Saline Saline -Foul Odor after Cleansing No No -Bioengineered Tissue No No -Bleeding Controlled with Pressure Pressure -Offloading No No -Treatment Response Procedure Procedure Tolerated Well Tolerated Well Pain Scale: 0-10 Numeric Is Patient Pain Free? Yes Yes Wound debrided: Left lateral foot Laterality: Left Type of Debridement: Excisional debridement Anesthesia Used: 5% Lidocaine Gel Depth: in the subcutaneous layer Percentage of wound debrided: 100 Instrument Used: - - 1 mm curette Tissue Removed: Adherent slough, fibrin, biofilm Severity: Fat Layer Exposed Amount of bleeding with debridement: Mild Bleeding Controlled with: Pressure Patient tolerated procedure well Assessment/Plan Assessment: As noted above Plan: Patient was carefully examined and evaluated again today. Another subcutaneous debridement was performed as noted in the clinical panel. Once complete, the ulcer site was dressed with Margie to the base followed by dry sterile dressing. She is to change the dressing in this manner daily. The importance of keeping the ulcer site offloaded and keeping pressure/friction from the site was discussed in great detail. The importance of lower extremity compression as well as keeping her legs elevated all times while seated or lying down was stressed again as well. Bilateral venous Doppler examination completed that showed incompetent veins in the lower extremity near the ulcer site. Full detailed report in patient's chart. Patient has an appointment with Dr. Frank in approximately 2 weeks. Recommend a diet high in protein to help optimize ulcer healing potential. The patient was educated on all signs and symptoms of local and systemic infection she was instructed to go to the emergency room immediately should she notice any of these. All questions were answered to the patient's satisfaction. The patient will follow back up in clinic with me in 2 week to check on progress, but was instructed to follow-up sooner if needed before then.
[2019-04-07 09:02] VITALS: BP 151/86; PULSE 67; RESP 18; TEMP 36.6; BMI 33.3
--- NOTE | 2019-04-07 09:15 | PCM.WC.PN ---
(1) Ulcer of left lower extremity Status: Acute Current Visit: No Code(s): L97.929 - Non-pressure chronic ulcer of unspecified part of left lower leg with unspecified severity (2) Venous insufficiency Status: Acute Current Visit: No Code(s): I87.2 - Venous insufficiency (chronic) (peripheral) (3) Pain of left lower extremity Status: Acute Current Visit: No Code(s): M79.605 - Pain in left leg (4) Lower extremity edema Status: Acute Current Visit: No Code(s): R60.0 - Localized edema Type of Wound Date of Service: 04/07/19 Chief Complaint: ulcer left lateral foot History of Wound: This 58-year-old female was referred to the wound healing center for a nonhealing ulcer to the left lateral foot. She said she noticed the area open a few weeks ago and says that it is stayed about the same since then. She denies noticing any signs of infection to the area. She admits to having compression stockings, but says she does not wear them like she is supposed to. She used to see Dr. Courtney in the past for issues with her veins and they have discussed a vein stripping surgery, however patient has never proceeded with having this done yet. She has been keeping the area dressed. She currently denies any feelings of nausea, vomiting, fever, chills. Progress of Wound: Ulcer stable. Patient denies any feelings of nausea, vomiting, fever, or chills. - Physical Exam Vital Signs Temp Pulse Resp BP 97.9 F 67 18 151/86 H 04/07/19 09:02 04/07/19 09:02 04/07/19 09:02 04/07/19 09:02 General: Alert, Oriented x3, Cooperative, No apparent distress Extremities: Capillary Refill Less than 3 Seconds, No Calf Tenderness - Negative Darlene and Mg signs, Edema - Bilateral lower extremity edema, Peripheral Pulses Normal - DP and PT pulses palpable bilateral Skin: Ulcer/ Wound - Ulcer to left lateral foot just distal to the left lateral malleolus with fat layer exposed. Base is a mixture of granular tissue, adherent slough, fibrin, biofilm. There is no probing to bone, no tracking, no undermining, no surrounding cellulitis, no significant increase in warmth, and no malodor at this time. There is surrounding hemosiderin skin deposit color change noted. Bilateral lower extremity varicosities noted with left being worse than right. Wound Measurements and Assessment WC - Nurse 1 - General Ulcer Measurement Start: 03/17/19 09:23 Freq: Status: Active Protocol: Activity Type Activity Date Activity User E-Sign Co-Sign Detail Recorded Client Recorded Date Recorded By Document 04/07/19 09:02 DL [id number] 04/07/19 09:06 DL 04/07/19 09:02 Wound Center Nurse 1 [Ulcer Assessment] #1- L LAT FOOT/ANKLE CLUSTER -Current Size (cm) - Length 1 -Current Size (cm) - Width 2.4 -Current Size (cm) - Depth 0.1 -Total Square Cm 2.4 -Photo Taken No -Exudate Amt Small -Exudate Type Serosanguineous -Wound Margin Indistinct, Non -Visible -Granulation Amt None Present (0 %) -Necrosis Amt Large (67-100%) -Necrotic Tissue Type Adherent Slough -Structure Exposed N/A -Texture (Tess-wound Skin Appearance) Localized Edema ,Scarring -Moisture (Tess-wound Skin Appearance No Abnormality ) -Color (Tess-wound Skin Appearance) Erythema, Hemosiderin Staining,Rubor -Temperature (Tess-wound Skin No Abnormality Appearance) (Pt Warm) -Tenderness on Palpation (Tess-wound No Skin Appearance) -Ulcer Cleansing Rinsed/ Irrigated with Saline -Foul Odor after Cleansing No -Anesthetic Used 5% Lidocaine Gel [Edema Assessment] -Left Calf (cm) 39 -Left Ankle (cm) 21.8 Musculoskeletal: Tenderness - With ulcer site manipulation Neurological: Sensory exam intact to light touch and pain Psych/Mental Status: Normal Affect, Appropriate Debridement Note Post-Debridement Measurements/Treatment WC - Nurse 2 - General Ulcer CM Notes Start: 03/17/19 09:23 Freq: Status: Active Protocol: Activity Type Activity Date Activity User E-Sign Co-Sign Detail Recorded Client Recorded Date Recorded By Document 03/17/19 09:39 AN [id number] 03/17/19 09:40 AN Document 03/24/19 10:17 AN [id number] 03/24/19 10:20 AN 03/17/19 03/24/19 09:39 10:17 Wound Center Nurse 2 #1- L LAT FOOT/ANKLE CLUSTER -Time 09:39 10:18 -Correct Patient Yes Yes -Correct Side, Site, Position Yes Yes -Correct Procedure Yes Yes -Procedure Performed Yes Yes -Type of Procedure Debridement Debridement -Clinical Debridement Subcutaneous Subcutaneous -Post Debridement Size (cm) - Length 0.4 0.6 -Post Debridement Size (cm) - Width 0.5 0.8 -Post Debridement Size (cm) - Depth 0.2 0.2 -Total Square Cm 0.20 0.48 -Wound/Ulcer Outcome Not Healed Not Healed -Ulcer Cleansing Rinsed/ Rinsed/ Irrigated with Irrigated with Saline Saline -Foul Odor after Cleansing No No -Bioengineered Tissue No No -Bleeding Controlled with Pressure Pressure -Offloading No No -Treatment Response Procedure Procedure Tolerated Well Tolerated Well Pain Scale: 0-10 Numeric Is Patient Pain Free? Yes Yes Wound debrided: Left lateral foot Laterality: Left Type of Debridement: Excisional debridement Anesthesia Used: 5% Lidocaine Gel Depth: in the subcutaneous layer Percentage of wound debrided: 100 Instrument Used: - - 1 mm curette Tissue Removed: Adherent slough, fibrin, biofilm Severity: Fat Layer Exposed Amount of bleeding with debridement: Mild Bleeding Controlled with: Pressure Patient tolerated procedure well Assessment/Plan Assessment: As noted above Plan: Patient was carefully examined and evaluated again today. Ulcer remains fairly stable. Another subcutaneous debridement was performed as noted in the clinical panel. Once complete, the ulcer site was dressed with Margie to the base followed by dry sterile dressing. She is to change the dressing in this manner daily. The importance of keeping the ulcer site offloaded and keeping pressure/friction from the site was discussed in great detail. The importance of lower extremity compression as well as keeping her legs elevated all times while seated or lying down was stressed again as well. Bilateral venous Doppler examination completed that showed incompetent veins in the lower extremity near the ulcer site. Full detailed report in patient's chart. Patient saw Dr. Frank who she states has an intervention planned for April 25. She says she cannot remember the exact procedure that is planned. We will try to have Dr. Frank's office note faxed. Recommend a diet high in protein to help optimize ulcer healing potential. The patient was educated on all signs and symptoms of local and systemic infection she was instructed to go to the emergency room immediately should she notice any of these. All questions were answered to the patient's satisfaction. The patient will follow back up in clinic with me in 1 week to check on progress, but was instructed to follow-up sooner if needed before then.
== END 2019-04-16 23:59 ==
LOC: WC 09:00
PROVIDERS: Family Provider Internal Medicine; PCP Internal Medicine; Referring Provider Podiatrist; Visit Provider Podiatrist
DX: I83.023 Varicose veins of left lower extremity with ulcer of ankle (principal); I87.2 Venous insufficiency (chronic) (peripheral); R60.0 Localized edema; L97.322 Non-pressure chronic ulcer of left ankle with fat layer exposed; M79.605 Pain in left leg; I83.91 Asymptomatic varicose veins of right lower extremity
CPT/HCPCS: 11042; 29580; 99212; G0463

== ENCOUNTER 2019-04-28 10:00 | Outpatient (RCR) | payer SELFPAY ==
[2019-04-17 00:57] VITALS: BP 151/86; PULSE 67; RESP 18; TEMP 36.6
[2019-04-21 08:16] VITALS: BP 124/67; PULSE 67; RESP 18; TEMP 36.6; BMI 33.3
--- NOTE | 2019-04-21 08:55 | PCM.WC.PN ---
(1) Ulcer of left lower extremity Status: Acute Current Visit: No Code(s): L97.929 - Non-pressure chronic ulcer of unspecified part of left lower leg with unspecified severity (2) Venous insufficiency Status: Acute Current Visit: No Code(s): I87.2 - Venous insufficiency (chronic) (peripheral) (3) Pain of left lower extremity Status: Acute Current Visit: No Code(s): M79.605 - Pain in left leg (4) Lower extremity edema Status: Acute Current Visit: No Code(s): R60.0 - Localized edema Type of Wound Date of Service: 04/21/19 Chief Complaint: ulcer left lateral foot History of Wound: This 58-year-old female was referred to the wound healing center for a nonhealing ulcer to the left lateral foot. She said she noticed the area open a few weeks ago and says that it is stayed about the same since then. She denies noticing any signs of infection to the area. She admits to having compression stockings, but says she does not wear them like she is supposed to. She used to see Dr. Courtney in the past for issues with her veins and they have discussed a vein stripping surgery, however patient has never proceeded with having this done yet. She has been keeping the area dressed. She currently denies any feelings of nausea, vomiting, fever, chills. Progress of Wound: Ulcer stable again this week. Patient denies any feelings of nausea, vomiting, fever, or chills. - Physical Exam Vital Signs Temp Pulse Resp BP 97.8 F 67 18 124/67 H 04/21/19 08:16 04/21/19 08:16 04/21/19 08:16 04/21/19 08:16 General: Alert, Oriented x3, Cooperative, No apparent distress Extremities: Capillary Refill Less than 3 Seconds, No Calf Tenderness - Negative Darlene and Mg signs, Edema - Bilateral lower extremity edema, Peripheral Pulses Normal - DP and PT pulses palpable bilateral Skin: Ulcer/ Wound - Ulcer to left lateral foot just distal to the left lateral malleolus with fat layer exposed. Base is a mixture of granular tissue, adherent slough, fibrin, biofilm. There is no probing to bone, no tracking, no undermining, no surrounding cellulitis, no significant increase in warmth, and no malodor at this time. There is surrounding hemosiderin skin deposit color change noted. Bilateral lower extremity varicosities noted with left being worse than right. Wound Measurements and Assessment WC - Nurse 1 - General Ulcer Measurement Start: 04/21/19 08:16 Freq: Status: Active Protocol: Activity Type Activity Date Activity User E-Sign Co-Sign Detail Recorded Client Recorded Date Recorded By Document 04/21/19 08:16 JF [id number] 04/21/19 08:21 [email or web address] 04/21/19 08:16 Wound Center Nurse 1 [Ulcer Assessment] #1- L LAT FOOT/ANKLE CLUSTER -Combined with other wound No -Current Size (cm) - Length 0.3 -Current Size (cm) - Width 2.1 -Current Size (cm) - Depth 0.2 -Total Square Cm 0.63 -Photo Taken No -Epithelialization None Present -Tunneling No -Undermining/Tunneling No -Circular Undermining No -Exudate Amt None Present -Wound Margin Flat & Intact -Granulation Amt None Present (0 %) -Slough/Fibrin Yes -Necrosis Amt Large (67-100%) -Necrotic Tissue Type Adherent Slough -Structure Exposed N/A -Texture (Tess-wound Skin Appearance) Assessed, Localized Edema -Moisture (Tess-wound Skin Appearance Assessed,Dry/ ) Scaly -Color (Tess-wound Skin Appearance) Assessed, Hemosiderin Staining -Temperature (Tess-wound Skin No Abnormality Appearance) (Pt Warm) -Tenderness on Palpation (Tess-wound No Skin Appearance) -Ulcer Cleansing Rinsed/ Irrigated with Saline -Foul Odor after Cleansing No -Anesthetic Used 5% Lidocaine Gel [Edema Assessment] -Lower Limb Edema Present Yes -Left Calf (cm) 41 -Left Ankle (cm) 22.6 WC - Nurse 2 - General Ulcer CM Notes Start: 04/21/19 08:16 Freq: Status: Active Protocol: Activity Type Activity Date Activity User E-Sign Co-Sign Detail Recorded Client Recorded Date Recorded By Document 04/21/19 08:30 AN [id number] 04/21/19 08:31 AN 04/21/19 08:30 Wound Center Nurse 2 [Procedure/Treatment] #1- L LAT FOOT/ANKLE CLUSTER -Time 08:30 -Correct Patient Yes -Correct Side, Site, Position Yes -Correct Procedure Yes -Procedure Performed Yes -Type of Procedure Debridement -Clinical Debridement Subcutaneous -Post Debridement Size (cm) - Length 0.3 -Post Debridement Size (cm) - Width 0.5 -Post Debridement Size (cm) - Depth 0.1 -Total Square Cm 0.15 -Wound/Ulcer Outcome Not Healed -Ulcer Cleansing Rinsed/ Irrigated with Saline -Foul Odor after Cleansing No -Bioengineered Tissue No -Bleeding Controlled with Pressure -Offloading Yes -Type of Offloading Surgical Shoe -Treatment Response Procedure Tolerated Well [See Physician Procedure note for Specifics] Pain Scale: 0-10 Numeric [Pain] -Is Patient Pain Free? Yes Musculoskeletal: Tenderness - With ulcer site manipulation Neurological: Sensory exam intact to light touch and pain Psych/Mental Status: Normal Affect, Appropriate Debridement Note Post-Debridement Measurements/Treatment WC - Nurse 2 - General Ulcer CM Notes Start: 04/21/19 08:16 Freq: Status: Active Protocol: Activity Type Activity Date Activity User E-Sign Co-Sign Detail Recorded Client Recorded Date Recorded By Document 04/21/19 08:30 AN [id number] 04/21/19 08:31 AN 04/21/19 08:30 Wound Center Nurse 2 #1- L LAT FOOT/ANKLE CLUSTER -Time 08:30 -Correct Patient Yes -Correct Side, Site, Position Yes -Correct Procedure Yes -Procedure Performed Yes -Type of Procedure Debridement -Clinical Debridement Subcutaneous -Post Debridement Size (cm) - Length 0.3 -Post Debridement Size (cm) - Width 0.5 -Post Debridement Size (cm) - Depth 0.1 -Total Square Cm 0.15 -Wound/Ulcer Outcome Not Healed -Ulcer Cleansing Rinsed/ Irrigated with Saline -Foul Odor after Cleansing No -Bioengineered Tissue No -Bleeding Controlled with Pressure -Offloading Yes -Type of Offloading Surgical Shoe -Treatment Response Procedure Tolerated Well Pain Scale: 0-10 Numeric Is Patient Pain Free? Yes Wound debrided: Left lateral foot Laterality: Left Type of Debridement: Excisional debridement Anesthesia Used: 5% Lidocaine Gel Depth: in the subcutaneous layer Percentage of wound debrided: 100 Instrument Used: - - 1 mm curette Tissue Removed: Adherent slough, fibrin, biofilm Severity: Fat Layer Exposed Amount of bleeding with debridement: Mild Bleeding Controlled with: Pressure Patient tolerated procedure well Assessment/Plan Assessment: As noted above Plan: Patient was carefully examined and evaluated again today. Ulcer stable again this week. Another subcutaneous debridement was performed as noted in the clinical panel. Once complete, the ulcer site was dressed with Margie to the base followed by dry sterile dressing. She is to change the dressing in this manner daily. The importance of keeping the ulcer site offloaded and keeping pressure from the site was discussed in detail. The importance of lower extremity compression as well as keeping her legs elevated all times while seated or lying down was stressed again as well. Bilateral venous Doppler examination completed that showed incompetent veins in the lower extremity near the ulcer site. Full detailed report in patient's chart. Patient saw Dr. Frank who she states has an intervention planned for April 25. She says she cannot remember the exact procedure that is planned. We will try to have Dr. Frank's office note faxed. Recommend a diet high in protein to help optimize ulcer healing potential. The patient was educated on all signs and symptoms of local and systemic infection she was instructed to go to the emergency room immediately should she notice any of these. All questions were answered to the patient's satisfaction. The patient will follow back up in clinic with me in 1 week to check on progress, but was instructed to follow-up sooner if needed before then.
[2019-04-28 10:23] VITALS: BP 129/68; PULSE 68; RESP 18; TEMP 36.7; BMI 33.3
--- NOTE | 2019-04-28 10:48 | PCM.WC.PN ---
(1) Ulcer of left lower extremity Status: Acute Current Visit: No Code(s): L97.929 - Non-pressure chronic ulcer of unspecified part of left lower leg with unspecified severity (2) Venous insufficiency Status: Acute Current Visit: No Code(s): I87.2 - Venous insufficiency (chronic) (peripheral) (3) Pain of left lower extremity Status: Acute Current Visit: No Code(s): M79.605 - Pain in left leg (4) Lower extremity edema Status: Acute Current Visit: No Code(s): R60.0 - Localized edema Type of Wound Date of Service: 04/28/19 Chief Complaint: ulcer left lateral foot History of Wound: This 58-year-old female was referred to the wound healing center for a nonhealing ulcer to the left lateral foot. She said she noticed the area open a few weeks ago and says that it is stayed about the same since then. She denies noticing any signs of infection to the area. She admits to having compression stockings, but says she does not wear them like she is supposed to. She used to see Dr. Courtney in the past for issues with her veins and they have discussed a vein stripping surgery, however patient has never proceeded with having this done yet. She has been keeping the area dressed. She currently denies any feelings of nausea, vomiting, fever, chills. Progress of Wound: Ulcer shows improved appearance. Patient denies any feelings of nausea, vomiting, fever, or chills. - Physical Exam Vital Signs Temp Pulse Resp BP 98.0 F 68 18 129/68 H 04/28/19 10:23 04/28/19 10:23 04/28/19 10:23 04/28/19 10:23 General: Alert, Oriented x3, Cooperative, No apparent distress Extremities: Capillary Refill Less than 3 Seconds, No Calf Tenderness - Negative Darlene and Mg signs, Edema - Bilateral lower extremity edema, Peripheral Pulses Normal - DP and PT pulses palpable bilateral Skin: Ulcer/ Wound - Ulcer to left lateral foot just distal to the left lateral malleolus with fat layer exposed. Base is a mixture of granular tissue, adherent slough, fibrin, biofilm. There is no probing to bone, no tracking, no undermining, no surrounding cellulitis, no significant increase in warmth, and no malodor at this time. There is surrounding hemosiderin skin deposit color change noted. Bilateral lower extremity varicosities noted with left being worse than right. Wound Measurements and Assessment WC - Nurse 1 - General Ulcer Measurement Start: 04/21/19 08:16 Freq: Status: Active Protocol: Activity Type Activity Date Activity User E-Sign Co-Sign Detail Recorded Client Recorded Date Recorded By Document 04/28/19 10:23 MT [id number] 04/28/19 10:29 MT 04/28/19 10:23 Wound Center Nurse 1 [Ulcer Assessment] #1- L LAT FOOT/ANKLE CLUSTER -Current Size (cm) - Length 0.5 -Current Size (cm) - Width 0.3 -Current Size (cm) - Depth 0.2 -Total Square Cm 0.15 -Exudate Amt None Present -Wound Margin Flat & Intact -Granulation Amt Small (1-33%) -Granulation Quality Pale,Shelley -Necrosis Amt Large (67-100%) -Necrotic Tissue Type Adherent Slough -Texture (Tess-wound Skin Appearance) Assessed -Moisture (Tess-wound Skin Appearance Assessed ) -Color (Tess-wound Skin Appearance) Assessed, Hemosiderin Staining -Temperature (Tess-wound Skin No Abnormality Appearance) (Pt Warm) -Tenderness on Palpation (Tess-wound No Skin Appearance) -Ulcer Cleansing Rinsed/ Irrigated with Saline -Foul Odor after Cleansing No -Anesthetic Used 5% Lidocaine Gel [Edema Assessment] -Lower Limb Edema Present Yes -Left Calf (cm) 41 -Left Ankle (cm) 22.6 WC - Nurse 2 - General Ulcer CM Notes Start: 04/21/19 08:16 Freq: Status: Active Protocol: Activity Type Activity Date Activity User E-Sign Co-Sign Detail Recorded Client Recorded Date Recorded By Document 04/28/19 10:35 AN [id number] 04/28/19 10:38 AN 04/28/19 10:35 Wound Center Nurse 2 [Procedure/Treatment] #1- L LAT FOOT/ANKLE CLUSTER -Time 10:37 -Correct Patient Yes -Correct Side, Site, Position Yes -Correct Procedure Yes -Procedure Performed Yes -Type of Procedure Debridement -Clinical Debridement Subcutaneous -Post Debridement Size (cm) - Length 0.3 -Post Debridement Size (cm) - Width 0.5 -Post Debridement Size (cm) - Depth 0.1 -Total Square Cm 0.15 -Wound/Ulcer Outcome Not Healed -Ulcer Cleansing Rinsed/ Irrigated with Saline -Foul Odor after Cleansing No -Bioengineered Tissue No -Bleeding Controlled with Pressure -Offloading No -Treatment Response Procedure Tolerated Well [See Physician Procedure note for Specifics] Pain Scale: 0-10 Numeric [Pain] -Is Patient Pain Free? Yes Musculoskeletal: Tenderness - With manipulation of ulcer site Neurological: Sensory exam intact to light touch and pain Psych/Mental Status: Normal Affect, Appropriate Debridement Note Post-Debridement Measurements/Treatment WC - Nurse 2 - General Ulcer CM Notes Start: 04/21/19 08:16 Freq: Status: Active Protocol: Activity Type Activity Date Activity User E-Sign Co-Sign Detail Recorded Client Recorded Date Recorded By Document 04/21/19 08:30 AN [id number] 04/21/19 08:31 AN Document 04/28/19 10:35 AN [id number] 04/28/19 10:38 AN 04/21/19 04/28/19 08:30 10:35 Wound Center Nurse 2 #1- L LAT FOOT/ANKLE CLUSTER -Time 08:30 10:37 -Correct Patient Yes Yes -Correct Side, Site, Position Yes Yes -Correct Procedure Yes Yes -Procedure Performed Yes Yes -Type of Procedure Debridement Debridement -Clinical Debridement Subcutaneous Subcutaneous -Post Debridement Size (cm) - Length 0.3 0.3 -Post Debridement Size (cm) - Width 0.5 0.5 -Post Debridement Size (cm) - Depth 0.1 0.1 -Total Square Cm 0.15 0.15 -Wound/Ulcer Outcome Not Healed Not Healed -Ulcer Cleansing Rinsed/ Rinsed/ Irrigated with Irrigated with Saline Saline -Foul Odor after Cleansing No No -Bioengineered Tissue No No -Bleeding Controlled with Pressure Pressure -Offloading Yes No -Type of Offloading Surgical Shoe -Treatment Response Procedure Procedure Tolerated Well Tolerated Well Pain Scale: 0-10 Numeric Is Patient Pain Free? Yes Yes Wound debrided: Left lateral foot Laterality: Left Type of Debridement: Excisional debridement Anesthesia Used: 5% Lidocaine Gel Depth: in the subcutaneous layer Percentage of wound debrided: 100 Instrument Used: - - 1 mm curette Tissue Removed: Adherent slough, fibrin, biofilm Severity: Fat Layer Exposed Amount of bleeding with debridement: Mild Bleeding Controlled with: Pressure Patient tolerated procedure well Assessment/Plan Assessment: As noted above Plan: Patient was carefully examined and evaluated again today. Patient had a procedure performed on her veins by Dr. Frank on Thursday of this week. Patient states that they were injected, but she is unsure of the exact procedure that was performed. We will try to get the procedure note faxed over for our records. The surrounding area of the ulcer site appears improved already. Another subcutaneous debridement was performed as noted in the clinical panel. Once complete, the ulcer site was dressed with Margie to the base followed by dry sterile dressing. She is to change the dressing in this manner daily. The importance of keeping the ulcer site offloaded and keeping pressure from the site was discussed in detail. The importance of lower extremity compression as well as keeping her legs elevated all times while seated or lying down was stressed again as well. Bilateral venous Doppler examination completed that showed incompetent veins in the lower extremity near the ulcer site. Full detailed report in patient's chart. Recommend a diet high in protein to help optimize ulcer healing potential. The patient was educated on all signs and symptoms of local and systemic infection she was instructed to go to the emergency room immediately should she notice any of these. All questions were answered to the patient's satisfaction. The patient will follow back up in clinic with me in 1 week to check on progress, but was instructed to follow-up sooner if needed before then.
== END 2019-05-16 23:59 ==
LOC: WC 10:00
PROVIDERS: Family Provider Internal Medicine; PCP Internal Medicine; Referring Provider Podiatrist; Visit Provider Podiatrist
DX: I83.025 Varicose veins of left lower extremity with ulcer other part of foot (principal); L97.522 Non-pressure chronic ulcer of other part of left foot with fat layer exposed; M79.605 Pain in left leg; R60.0 Localized edema; I87.2 Venous insufficiency (chronic) (peripheral)
CPT/HCPCS: 11042

== ENCOUNTER → 2020-02-09 12:08 | Outpatient (CLI) | payer SELFPAY ==
[2020-02-09 11:58] VITALS: BMI 33.3
[2020-02-09 15:18] LABS: Erythrocyte Sedimentation Rate 15 mm/hr (0-30)
== END ==
PROVIDERS: PCP Internal Medicine; Referring Provider Family Medicine; Visit Provider Family Medicine
DX: M19.90 Unspecified osteoarthritis, unspecified site (principal)
CPT/HCPCS: 36415; 85652

== ENCOUNTER → 2020-03-21 10:55 | Outpatient (CLI) | payer SELFPAY ==
[2020-03-16 15:45] VITALS: BMI 33.3
--- NOTE | 2020-03-21 10:56 | US_ITS ---
STUDY: SUPERFICIAL ULTRASOUND - BACK. REASON FOR EXAM: Female, 59 years old. Palpable back mass TECHNIQUE: A superficial ultrasound was performed with real-time and static livingston-scale imaging. COMPARISON: None. FINDINGS: The palpable adenopathy on the right side corresponds to a 2.4 cm x 3.4 cm x 1.1 cm slightly echogenic well-defined nodule. This most likely represents a lipoma. A similar appearing nodular density is seen on the left-sided midline posteriorly measuring 1.5 cm x 1.9 cm x 1 cm. US/Ext Non Vasc Limited/Soft Tiss IMPRESSION: Findings suggestive of a lipomas corresponding to the palpable abnormalities. Electronically Signed: Melchor Ye, at 14:04 EDT , Service support ,
== END ==
PROVIDERS: PCP Internal Medicine; Referring Provider Nurse Practitioner Family; Visit Provider Nurse Practitioner Family
DX: R22.2 Localized swelling, mass and lump, trunk (principal)
CPT/HCPCS: 76882

== ENCOUNTER 2021-04-04 14:36 | Emergency (ER) | payer OTHER, SELFPAY ==
[2021-04-04 14:37] VITALS: BP 113/72; PULSE 78; RESP 16; TEMP 36.1; O2SAT 96; BMI 35.6
--- NOTE | 2021-04-04 15:01 | VDLE_ITS ---
Reason For Study: Swelling RIGHT LEFT CFV is compressible, spontaneous, phasic, CFV is compressible, spontaneous, phasic, competent and demonstrates normal competent, and demonstrates normal augmentation. augmentation. Procedure FV is compressible, spontaneous, phasic, This is a venous duplex using B-mode, color competent and demonstrates normal flow and spectral Doppler. augmentation. Exam performed portable in ED. POP V is compressible, spontaneous, phasic, A preliminary report was called and/or faxed competent and demonstrates normal to ED. augmentation. T/P Trunk is compressible. PTV is compressible. LT PerV is compressible. GSV mid calf-ankle is compresseible. Acute superficial vein thrombosis is noted in the left GSV from prox thigh to prox calf, not extending into junction. Thrombus filled varicose veins noted mid- distal thigh. VL/Venous Duplex US, Unilateral Interpretation Summary There is no evidence of left lower extremity deep vein thrombosis. Superficial thrombophlebitis left great saphenous vein from proximal calf to proximal thigh with involvement of v aricosities left mid to distal thigh. Normal flow patterns right common femoral vein Ordering Physician: Napoleon Moncada Referring Physician: Adrian Muse Performed By: Lexie Faustin RVT
--- NOTE | 2021-04-04 15:13 | EDS_ITS ---
HPI History of Present Illness Chief Complaint: Lower Extremity Injury Detail of Chief Complaint: Swelling to the vein of the left hamstring. Informant: patient Onset/Context/Timing Onset: Days Context: Gradual Onset Timing: Continuous Quality of Pain: Dull Current Severity: Mild Maximum Severity: Mild Associated Symptoms Associated Symptoms: Negative for Parasthesia, Weakness and Loss of Funtion Narrative Narrative: 60-year-old female has had prior phlebitis has never had a DVT or PE. Recently flew out to [place] and back she has had swelling to her left hamstring area. Went to urgent care they sent her in to be evaluated for possible DVT. She denies any other complaints. Denies chest pain or shortness of breath. She does have a history of hypertension. She is on no anticoagulation. Prior similar symptoms: Yes Recent Illness/Hospitalization: No [facility] Medical History History of breast lump Osteoarthritis of left foot Seasonal allergies Home Medications meloxicam 15 mg tablet 15 mg PO DAILY #30 tab 03/05/21 [Rx Last Taken Unknown] diclofenac sodium 1 % topical gel 4 g TOPICAL QDAY PRN #100 g 03/13/21 [Rx Last Taken Unknown] tramadol 50 mg tablet 50 mg PO Q12H PRN #14 tab 03/13/21 [Rx Last Taken Unknown] Allergy/AdvReac Type Severity Reaction Status Date / Time amoxicillin Allergy Severe Itching Verified 04/04/21 14:40 amoxycillin Allergy Severe rash Uncoded 04/04/21 14:40 Family History Aunt Breast cancer Mother Cancer thyroid Hypertension Osteoporosis Heart disease Brother Cancer melanoma Surgical History History of partial thyroidectomy Social History Smoking Status: Never smoker alcohol intake: never what type of physical activity do you participate in: walking ROS ROS ED ROS Narrative Denies recent illness. Several weeks ago had a URI that is since resolved. Review of Systems ROS Unobtainable: Denies due to encephalopathy Constitutional Constitutional ED: Denies chills or fever(s) Eyes Eyes: Denies change in vision ENT ENT ED: Denies ear pain or sore throat Cardiovascular Cardiovascular: Denies chest pain or palpitations Respiratory/Chest Respiratory/Chest: Denies cough or dyspnea Gastrointestinal Gastrointestinal: Denies abdominal pain, constipation, diarrhea, nausea or vomiting Genitourinary Genitourinary ED: Denies dysuria or hematuria Musculoskeletal Musculoskeletal: Denies myalgias Integumentary Denies rash Psychiatric Psychiatric: Denies depression Endocrine Endocrinology: Denies polyuria Hematologic/Lymphatic Hematologic/Lymphatic: Denies easy bruising Allergic/Immunologic Allergic/Immunologic ED: Denies urticaria EXAM Physical Exam Narrative Exam Narrative: Well-appearing middle-aged female. Vital signs stable afebrile. Pulse ox 96% room air no signs of hypoxia. H EENT exam unremarkable. Neck nontender no lymphadenopathy. Lungs clear to auscultation bilaterally. Heart regular rhythm no murmur. Rate about 80. Abdomen soft nontender. Moving all 4 extremities. Neurovascular intact. Left hamstring she does have a prominent area that is tender to palpation that is either a DVT or superficial thrombophlebitis. The calves nontender without edema. Both lower extremities are neurovascularly intact. There is no inguinal lymphadenopathy. Neurologically she is awake and alert with no focal motor deficits. Const Vital Signs: 04/04/21 14:37 Temperature 96.9 F L Temperature Source Temporal Pulse Rate 78 Respiratory Rate 16 Blood Pressure 113/72 Blood Pressure Mean 85 Pulse Ox 96 Oxygen Delivery Method Room Air Positive well nourished and well developed General Appearance ED: well developed and NAD HEENT Reports moist mucous membranes normocephalic and atraumatic; Negative for trauma or tenderness Eyes PERRL Neck full ROM and supple Thyroid: Negative for tender Chest Wall inspection of chest normal and palpation of chest normal Resp normal respiratory effort, no retractions and clear to auscultation bilaterally Auscultation: Negative for rales, rhonchi or wheezes Cardio regular rate, regular rhythm, S1 normal heart sound, S2 normal heart sound and no murmurs GI non-tender, non-distended and no masses Inspection: Negative for abdominal distention Auscultation: normoactive bowel sounds Palpation: soft; Negative for tender, guarding or rebound tenderness present Back/Spine no CVA tenderness General Back: Negative for CVA tenderness Cervical Spine: Negative for cervical spine tenderness Thoracic Spine / Upper Back: Negative for thoracic spinal tenderness Extremity normal to inspection and full ROM Extremity Narrative: Left hamstring prominent tender area consistent with either superficial thrombophlebitis versus DVT. Neuro oriented x3 and moves all extremities Sensorium / Orientation: alert, oriented to person, oriented to place and oriented to time; Negative for orientation impaired, confused, lethargic or stuporous Motor Exam: strength 5/5 throughout Psych mental status grossly normal Mood & Affect: Negative for anxious Skin no wounds Lesions: no lesions Rashes: no rashes Trauma: Negative for abrasion or laceration MDM MDM MDM Narrative Medical decision making narrative: 60-year-old female recent travel history of prior 3 superficial thrombophlebitis left leg is an area of tenderness and swelling at the hamstring ultrasound being obtained to rule out DVT versus superficial thrombophlebitis. Discharge Plan Triage Chief Complaint: Lower Extremity Injury ED Provider: Napoleon Moncada Dx/Rx/DC Orders Prescriptions: No Action tramadol 50 mg tablet 50 mg PO Q12H PRN (Reason: pain) Qty: 14 RF: 1 diclofenac sodium [Voltaren Arthritis Pain] 1 % gel 4 g topical QDAY PRN (Reason: pain) Qty: 100 RF: 1 meloxicam 15 mg tablet 15 mg PO DAILY Qty: 30 RF: 0 Primary Care Provider: Adrian Muse
[2021-04-04 18:10] VITALS: PULSE 67; RESP 15; O2SAT 99
== END 2021-04-04 18:11 | disposition home or self-care (01) ==
PROVIDERS: Emergency Provider Emergency Medicine; PCP Internal Medicine
DX: I80.02 Phlebitis and thrombophlebitis of superficial vessels of left lower extremity (principal)
CPT/HCPCS: 93971; 99282

== ENCOUNTER → 2021-04-10 11:48 | Outpatient (CLI) | payer SELFPAY ==
[2021-04-10 14:51] LABS: Absolute Lymphocyte Count 1.49 X10^3/uL (0.83-4.51); Absolute Neutrophil Count 2.6 X10^3/uL (2.0-7.7); Basophil# 0.02 X10^3/uL; Basophil% 0.4 % (0-1); Eosinophil# 0.08 X10^3/uL; Eosinophils% 1.8 % (0-5); Hematocrit 39.9 % (37-47); Hemoglobin 12.8 g/dL (12.0-15.0); Lymphocyte # 1.49 X10^3/ul (0.83-4.51); Lymphocyte % 32.7 % (19-41); Mean Corp Hgb Conc 32.1 g/dL (32-36); Mean Corpuscular Hgb 29.3 pg (27.0-32.0); Mean Corpuscular Volume 91.3 fL (81-99); Mean Platelet Vol. 10.3 fl (6.2-12.0); Monocyte# 0.37 X10^3/uL; Monocyte% 8.1 % (0-10); NRBC Flagged by Analyzer 0 % (0-5); Neutrophil # 2.58 X10^3/uL (2.7-7.7); Neutrophil % 56.8 % (47-70); Platelet Count 272 K/mm3 (150-450); RBC Distribution Width CV 13.2 % (11.6-14.6); RBC Distribution Width SD 44.6 fl (35.1-43.9); Red Blood Count 4.37 M/mm3 (4.2-5.4); White Blood Count 4.6 K/mm3 (4.4-11.0)
[2021-04-10 15:34] LABS: ALB/GLOB Ratio 0.9 RATIO (0.9-2.4); AST(SGOT) 17 U/L (15-37); Alanine Aminotransfer ALT/SGPT 26 U/L (13-56); Albumin, Serum 3.6 g/dL (3.2-5.0); Alkaline Phosphatase 84 U/L (45-117); Anion Gap 5 (5-15); BUN 14 mg/dL (7-18); BUN/Creat Ratio 21.8 RATIO (10-20); Chloride 106 mmol/L (98-107); Cholesterol 221 mg/dL (200); Creatinine, Serum 0.64 mg/dL (0.55-1.02); EST Glomerular Filtration Rate 100 mL/min (>60); Est Glom Filt Rate - Afr Amer 121 mL/min (>60); Globulin 3.8 g/dL (2.2-4.2); Glucose 72 mg/dL (74-106); High Density Lipoprotein 59 mg/dL; Potassium 4.1 mmol/L (3.5-5.1); Protein, Total 7.4 g/dL (6.4-8.2); Sodium Level 138 mmol/L (136-145); Thyroid Stim Hormone (TSH) 1.51 uIU/mL (0.358-3.74); Triglycerides 178 mg/dL; Very Low Density Lipoprotein 36 mg/dL (5-40)
== END ==
PROVIDERS: PCP Internal Medicine; Referring Provider Nurse Practitioner Family; Visit Provider Nurse Practitioner Family
DX: E01.0 Iodine-deficiency related diffuse (endemic) goiter (principal); I80.9 Phlebitis and thrombophlebitis of unspecified site; I87.2 Venous insufficiency (chronic) (peripheral); M25.551 Pain in right hip; M25.552 Pain in left hip; M25.561 Pain in right knee; M25.562 Pain in left knee; G89.29 Other chronic pain
CPT/HCPCS: 36415; 80053; 80061; 84443; 85025

== ENCOUNTER → 2021-04-17 14:35 | Outpatient (CLI) | payer SELFPAY ==
--- NOTE | 2021-04-17 14:41 | US_ITS ---
History: Thyromegaly Thyroid ultrasound: Findings: Right thyroid lobe is not identified. Left lobe measures 6.4 x 2.2 x 2.7 cm. A dominant 3.5 x 2.8 cm left thyroid nodule. This nodule is mixed cystic and solid, hyperechoic or isoechoic, [id number], smoothly marginated and contains no echogenic foci. This nodule is not suspicious and no FNA or follow-up is necessary. 5 mm left thyroid nodule. This nodule is solid or almost completely solid, hyperechoic or isoechoic, [id number]-[id number], smoothly marginated and contains no echogenic foci. This nodule is mildly suspicious but no FNA or follow-up is necessary given the small size of this nodule. Additional smaller colloid cysts are noted. IMPRESSION: Absent right thyroid lobe. Left-sided thyroid nodules as described above. at 1233 Reported and signed by: Enoch Burnham MD Electronically Signed: Enoch Burnham MD at 12:32 EDT Tel , Service support , US/Thyroid
== END ==
PROVIDERS: PCP Family Medicine; Referring Provider Nurse Practitioner Family; Visit Provider Nurse Practitioner Family
DX: E01.0 Iodine-deficiency related diffuse (endemic) goiter (principal)
CPT/HCPCS: 76536

== ENCOUNTER → 2021-04-26 | Outpatient (CLI) | payer SELFPAY ==
--- NOTE | 2021-04-25 14:50 | FLU_PTH ---
PATIENT: PHILOMENA QUESADA [facility] U#:[id number] AGE/SX: 60/F ROOM: RE04/26/[address]: Dr. Ross Ng MD : 1960 BED: DIS: 04/26/2021 SPEC #: [id number] RECD: 04/26/21 11:27 STATUS: CRISTIAN REYuridia #: [id number] TERI: 04/25/21 14:[address]: Ross Ng DEPT: CYTOLOGY RECD BY: Urmila Rao ENTERED: 04/26/21 12:41 SP TYPE: Fluid OTHR DR: Dr. Dano Vegas, DO Tissues: A - Thyroid gland, NOS B - Thyroid gland, NOS Procedures: Special Stain Group II Surgery Specimen Level IV Cytospin Fluid HEADER OPERATION: Left thyroid FNA PRE-OP DIAGNOSIS: Left thyroid nodule TISSUE SUBMITTED: A. Left thyroid FNA fluid, B. Left thyroid FNA slides DIAGNOSIS CYTOLOGY A. Left thyroid nodule fluid, FNA (cytospin and cell block): Acellular specimen. See comment. B. Left thyroid nodule, FNA (smears): Nondiagnostic specimen due to lack of follicular cells. See comment. SJ:rg 04/29/2021 COMMENT A. The specimen predominantly consists of blood. B. Small amount of colloid is noted. Correlation with clinical, radiologic findings and appropriate follow up are necessary. Immediate cytologic evaluation to determine adequacy is not applicable. Case has been reviewed in consultation with Dr. Calhoun who concurs with the above diagnosis. IDC:AM CYTOLOGY STUDY Slides are reviewed. CYTOLOGY GROSS A. Received is 1 ml of dark red cloudy fluid labeled with the patient's name and and designated per the requisition as left thyroid. Submitted for cytology preparation including cell block. B. Received are 8 smears labeled with the patient's name and designated per the requisition as left thyroid. Submitted for staining. / cc 04/26/21 TC: Cannot code CPT: 33604, 38928, 33266
== END | disposition home or self-care (01) ==
PROVIDERS: PCP Family Medicine; Visit Provider Surgery
DX: E04.1 Nontoxic single thyroid nodule (principal)
CPT/HCPCS: 88108; 88305; 88313

== ENCOUNTER → 2021-07-29 14:15 | Outpatient (CLI) | payer SELFPAY ==
[2021-07-29 14:55] LABS: Absolute Lymphocyte Count 1.63 X10^3/uL (0.83-4.51); Absolute Neutrophil Count 3.4 X10^3/uL (2.0-7.7); Basophil# 0.02 X10^3/uL; Basophil% 0.4 % (0-1); Eosinophils% 1.9 % (0-5); Hematocrit 38.5 % (37-47); Hemoglobin 12.5 g/dL (12.0-15.0); Lymphocyte # 1.63 X10^3/ul (0.83-4.51); Lymphocyte % 30.5 % (19-41); Mean Corp Hgb Conc 32.5 g/dL (32-36); Mean Corpuscular Hgb 29.3 pg (27.0-32.0); Mean Corpuscular Volume 90.2 fL (81-99); Mean Platelet Vol. 9.9 fl (6.2-12.0); Monocyte# 0.23 X10^3/uL; Monocyte% 4.3 % (0-10); NRBC Flagged by Analyzer 0 % (0-5); Neutrophil # 3.35 X10^3/uL (2.7-7.7); Neutrophil % 62.5 % (47-70); Platelet Count 249 K/mm3 (150-450); RBC Distribution Width CV 12.9 % (11.6-14.6); RBC Distribution Width SD 42.5 fl (35.1-43.9); Red Blood Count 4.27 M/mm3 (4.2-5.4); White Blood Count 5.4 K/mm3 (4.4-11.0)
[2021-07-29 15:42] LABS: D-Dimer Quantitative (DVT/PE) 0.61 FEU/ug/m (0.27-0.49)
[2021-07-29 16:29] LABS: Anion Gap 8 (5-15); BUN 19 mg/dL (7-18); BUN/Creat Ratio 22.8 RATIO (10-20); Calcium,Total 8.5 mg/dL (8.5-10.1); Chloride 104 mmol/L (98-107); Creatinine, Serum 0.84 mg/dL (0.55-1.02); EST Glomerular Filtration Rate 74 mL/min (>60); Est Glom Filt Rate - Afr Amer 90 mL/min (>60); Glucose 135 mg/dL (74-106); Potassium 3.5 mmol/L (3.5-5.1); Sodium Level 137 mmol/L (136-145)
== END ==
PROVIDERS: Nurse Practitioner Family; PCP Family Medicine; Visit Provider Physician Assistant
DX: I10 Essential (primary) hypertension (principal); I80.9 Phlebitis and thrombophlebitis of unspecified site; M79.606 Pain in leg, unspecified
CPT/HCPCS: 36415; 80048; 85025; 85379

== ENCOUNTER → 2021-07-30 13:06 | Outpatient (CLI) | payer SELFPAY ==
--- NOTE | 2021-07-30 13:13 | VDLE_ITS ---
Reason For Study: pain Procedure LEFT This is a venous duplex using B-mode, color GSV is normal. flow and spectral Doppler. CFV is compressible, spontaneous, phasic, Exam performed in department. competent, and demonstrates normal The exam was abbreviated due to the COVID 19 augmentation. protocol. FV is compressible, spontaneous, phasic, The exam was diagnostic. competent and demonstrates normal A preliminary report was called and/or faxed augmentation. to Erika Gordon's office. POP V is compressible, spontaneous, phasic, competent and demonstrates normal augmentation. T/P Trunk is compressible. PTV is compressible. LT PerV is compressible. Chronic vein wall thickening is noted in the GSV. VL/Venous Duplex US, Unilateral Interpretation Summary There is no evidence of left lower extremity deep vein thrombosis. Left great s aphenous vein appears patent and compressible segmentally. Abbreviated COVID-19 protocol utilized Ordering Physician: Erika Gordon Performed By: Rachid Rosales RVT
== END ==
PROVIDERS: PCP Family Medicine; Referring Provider Physician Assistant; Visit Provider Physician Assistant
DX: M79.605 Pain in left leg (principal)
CPT/HCPCS: 93971

== ENCOUNTER 2021-09-18 11:15 | Outpatient (CLI) | payer SELFPAY ==
--- NOTE | 2021-09-18 11:20 | RAD_ITS ---
ACR Level 3 findings have been noted. An addendum which confirms receipt of the report will follow. STUDY: X-RAY - LEFT ANKLE REASON FOR EXAM: Medial left ankle pain and swelling, left ankle injury yesterday. TECHNIQUE: 3 view(s) of the ankle. COMPARISON: None. FINDINGS: Normal visualized distal tibia. There is a minimally displaced oblique fracture of the distal fibula extending to the level of the tibiotalar articulation. Normal tibiotalar articulation and ankle mortise. Normal visualized talus and calcaneus. There are dorsal osteophytes at the talonavicular articulation. There is suspected joint space narrowing of the posterior subtalar articulation. There is soft tissue swelling. RAD/Ankle min 3 Views IMPRESSION: Distal fibular fracture. Electronically Signed: Sunny Coe MD at 12:23 EST ,
--- NOTE | 2021-09-18 11:20 | RAD_ITS ---
STUDY: X-RAY - LEFT FOOT CLINICAL: Left foot pain and swelling, left foot injury yesterday. TECHNIQUE: 3 view(s) of the foot. COMPARISON: None. FINDINGS: Normal talus, calcaneus, and tarsal bones. There is pes planus deformity. There are dorsal osteophytes of the talonavicular articulation. There is a small marginal osteophyte at the calcaneocuboid articulation. Normal tarsometatarsal articulations. Normal metatarsi. There is joint space narrowing of the metatarsophalangeal joint of the great toe. Normal tibial and fibular sesamoid bones. There is a bipartite tibial sesamoid. Normal interphalangeal joint of the great toe. There is a small cyst in the proximal metaphysis of the first proximal phalanx. Normal second through fifth metatarsophalangeal joints. Normal interphalangeal joints and phalanges of the lesser toes. There is soft tissue swelling. RAD/Foot min 3 Views IMPRESSION: Arthrosis of the first metatarsophalangeal joint. Pes planus deformity. Soft tissue swelling. No demonstrated fracture of the left foot. Electronically Signed: Sunny Coe MD at 12:21 EST ,
== END 2021-09-18 23:59 | disposition short-term general hospital (02) ==
LOC: MTRAD 11:20
PROVIDERS: PCP Family Medicine; Referring Provider Physician Assistant; Visit Provider Physician Assistant
DX: S82.832A Other fracture of upper and lower end of left fibula, initial encounter for closed fracture (principal); X58.XXXA Exposure to other specified factors, initial encounter; M19.072 Primary osteoarthritis, left ankle and foot; M21.42 Flat foot [pes planus] (acquired), left foot
CPT/HCPCS: 73610; 73630

== ENCOUNTER 2021-09-23 13:50 | Outpatient (CLI) | payer SELFPAY ==
--- NOTE | 2021-09-23 13:53 | VDLE_ITS ---
Reason For Study: Pain Procedure LEFT This is a venous duplex using B-mode, color GSV is normal. flow and spectral Doppler. CFV is compressible, spontaneous, phasic, Exam performed in department. competent, and demonstrates normal A preliminary report was called and/or faxed augmentation. to [place]. FV is compressible, spontaneous, phasic, competent and demonstrates normal augmentation. POP V is compressible, spontaneous, phasic, competent and demonstrates normal augmentation. T/P Trunk is compressible. PTV is compressible. LT PerV is compressible. VL/Venous Duplex US, Unilateral Interpretation Summary There is no evidence of left lower extremity deep vein thrombosis. Left great s aphenous vein appears patent and compressible segmentally. Ordering Physician: Jane Coronel Referring Physician: Kole Vegas M.D. Performed By: Lexie Faustin RVT
== END 2021-09-23 23:59 | disposition home or self-care (01) ==
PROVIDERS: PCP Family Medicine
DX: I80.02 Phlebitis and thrombophlebitis of superficial vessels of left lower extremity (principal)
CPT/HCPCS: 93971

== ENCOUNTER → 2022-01-08 | Outpatient (CLI) | payer SELFPAY ==
--- NOTE | 2022-01-08 13:05 | US_ITS ---
INDICATION: Thyroid nodule EXAMINATION: Ultrasound US Thyroid (eg thyroid, parathyroid, parotid) TECHNIQUE: Casey scale and color doppler imaging was performed of the thyroid gland. COMPARISON: Thyroid ultrasound from 04/17/2021. FINDINGS: RIGHT THYROID LOBE: Status post right thyroidectomy. LEFT THYROID LOBE: 6.0 x 2.7 x 2.7 cm.. Homogeneous echotexture with normal vascularity. [There are 2 stable thyroid nodules as follows: * 3.2 x 3.1 x 2.9 cm nodule is stable in size given difference in technique. The nodule is mixed cystic and solid, isoechoic, smoothly marginated, and contains no echogenic foci. There is some internal vascularity. (TIRADS 2). Per TIRADS criteria, this nodule is not suspicious and no FNA or follow-up is necessary. * 6 mm nodule is stable in size given difference in technique. The nodule is almost completely solid, isoechoic, wider than tall, smoothly marginated, and contains no echogenic foci (TIRADS 3). ). Per TIRADS criteria, this nodule is not suspicious and no FNA or follow-up is necessary. ISTHMUS: 4 mm. No thyroid nodules are present. US/Thyroid IMPRESSION: Stable left thyroid nodules as above. Electronically Signed: Edmund Colby, at 9:44 EDT ,
== END | disposition home or self-care (01) ==
LOC: US 13:04
PROVIDERS: PCP Family Medicine; Referring Provider Surgery; Visit Provider Surgery
DX: E04.1 Nontoxic single thyroid nodule (principal)
CPT/HCPCS: 76536

== ENCOUNTER → 2022-09-10 | Outpatient (CLI) | payer SELFPAY ==
[2022-09-10 15:37] LABS: ALB/GLOB Ratio 1.1 RATIO (0.9-2.4); AST(SGOT) 12 U/L (15-37); Alanine Aminotransfer ALT/SGPT 20 U/L (13-56); Albumin, Serum 3.8 g/dL (3.2-5.0); Alkaline Phosphatase 84 U/L (45-117); Anion Gap 8 (5-15); BUN 18 mg/dL (7-18); BUN/Creat Ratio 22.1 RATIO (10-20); Calcium,Total 9.1 mg/dL (8.5-10.1); Chloride 103 mmol/L (98-107); Cholesterol 238 mg/dL (200); Creatinine, Serum 0.82 mg/dL (0.55-1.02); EST Glomerular Filtration Rate 76 mL/min (>60); Est Glom Filt Rate - Afr Amer 92 mL/min (>60); Globulin 3.5 g/dL (2.2-4.2); Glucose 84 mg/dL (74-106); High Density Lipoprotein 63 mg/dL; Potassium 4.2 mmol/L (3.5-5.1); Protein, Total 7.3 g/dL (6.4-8.2); Sodium Level 137 mmol/L (136-145); Triglycerides 183 mg/dL; Very Low Density Lipoprotein 37 mg/dL (5-40)
[2022-09-17 22:03] LABS: HPV Reflexed? NOT INDICATED
== END | disposition home or self-care (01) ==
PROVIDERS: PCP Family Medicine; Referring Provider Family Medicine; Visit Provider Family Medicine
DX: Z01.419 Encounter for gynecological examination (general) (routine) without abnormal findings (principal); I10 Essential (primary) hypertension
CPT/HCPCS: 36415; 80053; 80061; 88175; G0145

== ENCOUNTER → 2022-09-24 | Outpatient (CLI) | payer SELFPAY ==
--- NOTE | 2022-09-24 12:38 | BI_ITS ---
MAMMOGRAPHY - BILATERAL SCREENING REASON FOR EXAM: Female, 62 years old. Routine annual screening examination. PERTINENT HISTORY: Non-contributory. TECHNIQUE: Digital bilateral breast hnay (3D mammographic acquisition) in the CC and MLO projections. 2-D mediolateral oblique (MLO) and craniocaudad (CC) views of both breasts were obtained. CAD: Full Field Digital Mammography with Computer Added Detection was performed. COMPARISON: Comparison is made with prior outside examination dated 12/02/2017. FINDINGS: Breast Composition: There are scattered areas of fibroglandular density. There are no dominant masses or suspicious calcifications. No other significant abnormalities are identified. There has been no significant change since the prior study. BI/SCRN MAMM (CAD)W/HANY BILAT IMPRESSION: Stable bilateral screening mammogram. Yearly follow-up mammogram recommended. (A) ASSESSMENT CATEGORY: BIRADS Category 1: Negative. A letter regarding these results will be sent to the patient by the facility within 30 days. Approximately 10% of breast cancers are not detected by mammography. A normal mammogram should not delay biopsy of a clinically suspicious abnormality. [id number] Electronically Signed: Melchor Ye MD at 13:38 EST ,
== END | disposition home or self-care (01) ==
PROVIDERS: PCP Family Medicine; Visit Provider Family Medicine
DX: Z12.31 Encounter for screening mammogram for malignant neoplasm of breast (principal)
CPT/HCPCS: 77063; 77067

== ENCOUNTER 2022-11-27 13:19 | Day surgery (SDC) | payer SELFPAY ==
--- NOTE | 2022-11-27 | COLBX_PTH ---
PATIENT: PHILOMENA QUESADA LOC: [facility] U#:[id number] AGE/SX: 62/F ROOM: RE11/27/[address]: Dr. Ross Ng MD : 1960 BED: DIS: 11/27/2022 SPEC #: [id number] RECD: 11/27/22 17:00 STATUS: CRISTIAN ANDRESYuridia #: [id number] TERI: 11/27/22 00:[address]: Ross Ng DEPT: SURGICAL PATHOLOGY RECD BY: Clint Alaniz ENTERED: 11/28/22 09:47 SP TYPE: COLON BX OTHR DR: Dr. Dano Vegas, DO Tissues: Sigmoid colon biopsy Procedures: Surgery Specimen Level IV HEADER OPERATION: Colonoscopy ? open access (MAC), biopsy PRE-OP DIAGNOSIS: Screening colonoscopy TISSUE SUBMITTED: Sigmoid polyp biopsy MICROSCOPIC DIAGNOSIS Sigmoid polyp, biopsy: Fragments of hyperplastic polyp. ALIZA:citlali 12/01/2022 MICROSCOPIC DESCRIPTION Slides are reviewed. GROSS DESCRIPTION Received in fixative is one container labeled with the patient's name and designated sigmoid polyp biopsy. The specimen consists of multiple irregular fragments of light nettles soft tissue that in aggregate measure 0.8 x 0.4 x 0.1 cm. The specimen is totally submitted in one cassette. / SJ:rg 11/28/2022 TC:1 CPT: 62981
[2022-11-27 13:43] VITALS: BP 138/71; PULSE 66; RESP 18; TEMP 36.9; O2SAT 97; BMI 33.3
--- NOTE | 2022-11-27 14:17 | H&P.OPEN ---
[facility] - General General Date of Service: 11/27/22 Chief Complaint: Open access colonoscopy [facility] Narrative PHILOMENA QUESADA, is a 62 F who presents for open access colon screening. She is known to me for a history of left thyroid nodules. She confirms her preprocedure history that she has had no recent difficulties with her bowel movements. She confirms this is purely for screening maintenance exam. [facility] Medical History (Updated 11/24/22 @ 15:39 by Joi Garcia) Essential (primary) hypertension Heartburn History of breast lump History of pain when walking Hypertension Leg cramps Non-smoker Osteoarthritis of left foot Post-menopausal Seasonal allergies Syncope Thyroid nodule Thyromegaly Wears contact lenses Wears glasses Home Medications aspirin 81 mg chewable tablet 81 mg PO DAILY 09/23/21 [History Last Taken Unknown] multivitamin 1 tab PO DAILY 09/23/21 [History Last Taken Unknown] hydrochlorothiazide 25 mg tablet 25 mg PO QAM #90 tabs 07/03/22 [Rx Last Taken 11/27/22 09:30] meloxicam 15 mg tablet 15 mg PO DAILY #90 tabs 07/08/22 [Rx Last Taken Unknown] Allergy/AdvReac Type Severity Reaction Status Date / Time amoxicillin Allergy Severe Itching, Verified 11/27/22 13:42 rash Family History Aunt Breast cancer Mother Cancer thyroid Hypertension Osteoporosis Heart disease Brother Cancer melanoma Surgical History (Updated 11/24/22 @ 15:39 by Joi Garcia) H/O wrist surgery History of partial thyroidectomy Social History Smoking Status: Never smoker alcohol intake: never what type of physical activity do you participate in: walking Past Medical/Surgical History Planned Operation Planned Operative Procedure/s: colonoscopy S.O.S: No Previous Hospitalizations/Surgeries HX Hospitalizations: No HX of Surgeries: HERNIA REPAIR 2015 TENDON REPAIR LEFT HAND PARTIAL THYROIDECTOMY RIGHT BUNIONECTOMY 2011 CSECTION, APPENDECTOMY 1967, APPENDECTOMY Any Problems With Anesthesia: No You/Your Family Experience Fever (Hyperthermia) With Anes: No Cholinesterase deficiency: No Cardiovascular Hx Chest Pain within Last 2 months: No Hx of Irregular Heartbeat and/or Afib: No Hx Heart Attack: No Hx Congestive Heart Failure: No Hx Rheumatic Fever: No Hx Hypertension: Yes (controlled with meds) Hx Internal Defibrillator: No Hx Pacemaker: No Hx Cardiac Catheterization: No Hx Cardiac Surgery/Stents/Etc.: No Hx Stress Test: No Hx Pain in Legs when Walking/Leg Cramps: No Respiratory Chronic Cough: No HX of Shortness of Breath: Yes (SOB WITH 2 FLIGHTSOF STAIRS) Hoarseness: No Hx Chronic Obstructive Pulmonary Disease (COPD): No Hx Asthma: No Hx Emphysema: No Hx Sleep Apnea: No CPAP: No Hx Respiratory Tract Infection/Cold (presently): No Do You Snore Loudly (louder than talking or can be heard): Yes Do You Often Feel Tired/ Fatigued/ Sleepy Dring Daytime?: No Has Anyone Observed You Stop Breathing During Sleep?: No Result (for STOP score): Positive Hx Smoking: No Smoking Status: Never smoker Gastrointestinal Hx Gastroesophageal Reflux: No Hx Gastrointestinal Disorders: No Hx Gastrointestinal Bleed: No Hx Ulcer: No Hx Hiatal Hernia: No Difficulty Chewing/Swallowing: No Special diet followed at home: No Hx Unplanned Weight Loss of 20#: No HX Unplanned Weight Gain of 20#: No Neurological Hx Seizures: No HX Syncope/Blackout Spells/Unconsciousness: No Hx Transient Ischemic Attacks (TIA): No Hx Multiple Sclerosis: No Hx Parkinson's Disease: No Hx Head/Neck Injury: No Hx Headaches: No Hx Back Injury/Pain: No Recent Onset of Speech Difficulty: No Restless Legs: No Does patient have nerve stimulator: No Blood Disorder Hx Leukemia: No Bleeding Tendencies: No Hx Deep Vein Thrombosis: No (PHLEBITIS IN THE PAST) Hx High Cholesterol: No Blood Transmitted Disease: No Hx Hepatitis: No Hx Cirrhosis: No Hx Anemia: Yes (LOW IRON IN THE PAST) Hx Blood Disorders: No Reproduction : No Is Patient Lactating: No Hx Hysterectomy: No Hx Tubal Ligation: No Are You Post Menopause: Yes Genitourinary Hx Renal Disease: No Musculoskeletal Hx Arthritis: No Hx Rheumatoid Arthritis: No Hx Gout: No Recent Onset of an Orthopedic Problem: Yes (LEFT WRIST) Endocrine Hx Diabetes: No Thyroid Disease: Yes (NO MEDS/PARTIAL LOBECTOMY) Hx Steroid Therapy: No Psycho/Social Hx Substance Use: No Hx Alcohol Use: No Hx Anxiety: No Hx Depression: No Mental Illness: No Hx Dementia: No Miscellaneous Hx Cancer: No Recent Exposure to Contagious Disease: No Hx of C-Diff: No Any Loose Teeth: No Allergies amoxicillin Allergy (Severe, Verified 11/27/22 13:42) Itching, rash Discharge Is Pt Admitted From a Fdc, or a [facility]: No Who Could Help: Jean Paul After D/C, Where Do you Plan to Go: Return Home Vital Signs Vital Signs Vital Signs: 11/27/22 13:43 11/27/22 13:43 Temperature 98.5 F Temperature Source Temporal Pulse Rate 66 Respiratory Rate 18 Respiratory Pattern Normal Blood Pressure 138/71 H Blood Pressure Mean 93 Blood Pressure Source Monitor Blood Pressure Position Sitting Blood Pressure Location Right Arm Pulse Ox 97 Oxygen Delivery Method Room Air Weight Weight: 238 lb 15.697 oz Body Mass Index (BMI) 33.3 Physical Exam Const alert, oriented x3 and no apparent distress General Appearance: cooperative and comfortable Orientation / Consciousness: oriented to person, oriented to place and oriented to time Resp normal respiratory effort GI GI Narrative: Nondistended, soft Assessment & Plan Assessment/Plan (1) Encounter for screening for malignant neoplasm of colon: PLAN: This 62-year-old female who presents for open access colon cancer screening having met the preprocedure screening criteria with no current issues and no significant family history. This is her first colonoscopy. Patient confirms that she completed prep in anticipation of today's procedure and that her output is now largely clear. She denies any further questions. We will therefore proceed as planned with screening colonoscopy under MAC sedation. Surgery Risks - Colonoscopy Risks Include but are not Limited To: Risks include but are not limited to: Bleeding, perforation requiring further surgery, inability to complete colonoscopy requiring barium enema.
[2022-11-27 15:30] VITALS: BP 116/67; BP 138/71; PULSE 62; RESP 16; TEMP 35.9; O2SAT 96
--- NOTE | 2022-11-27 15:31 | OP.COLON_ITS ---
Patient Name: Payton Balderas Procedure Date: 11/27/2022 2:06 PM Date of : 1960 Age: 62 Procedure: Colonoscopy Indications: Screening for colorectal malignant neoplasm Providers: Ross Ng MD Referring MD: Ross Ng MD Medicines: See the Anesthesia note for documentation of the administered medications Patient Profile: Last Colonoscopy: none. The patient's first colonoscopy is today. Complications: No immediate complications. Estimated blood loss: Minimal. Procedure: Pre-Anesthesia Assessment: - The heart rate, respiratory rate, oxygen saturations, blood pressure, adequacy of pulmonary ventilation, and response to care were monitored throughout the procedure. After I obtained informed consent, the scope was passed under direct vision. Throughout the procedure, the patient's blood pressure, pulse, and oxygen saturations were monitored continuously. The colonoscope was introduced through the anus and advanced to the cecum, identified by palpation. The colonoscopy was performed without difficulty. The patient tolerated the procedure well. The quality of the bowel preparation was fair. Scope In: 2:24:14 PM Scope Withdrawal Time 0 hours 30 minutes 56 seconds Scope Out: 3:22:51 PM Total Procedure Duration Time 0 hours 58 minutes 37 seconds Findings: The ascending colon was significantly tortuous. Advancing the scope required changing the patient to a supine position and applying abdominal pressure. Multiple medium-mouthed diverticula were found in the sigmoid colon. No biopsies or other specimens were collected for this exam. A 5 mm, non-bleeding polyp was found in the sigmoid colon. The polyp was sessile. Biopsies were taken with a cold forceps for histology. Estimated blood loss was minimal. The exam was otherwise without abnormality on direct and retroflexion views. Impression: - Preparation of the colon was fair. - Tortuous colon. - Diverticulosis in the sigmoid colon. No specimens collected. - One 5 mm, non-bleeding polyp in the sigmoid colon. Biopsied. - The examination was otherwise normal on direct and retroflexion views. Recommendation: - Discharge patient to home (via wheelchair). - High fiber diet today. - Continue present medications. - Await pathology results. - Repeat colonoscopy date to be determined after pending pathology results are reviewed for surveillance based on pathology results. - Telephone my office for pathology results in 1 week. Procedure Code(s): --- Professional --- 49864, Colonoscopy, flexible; with biopsy, single or multiple Diagnosis Code(s): --- Professional --- Z12.11, Encounter for screening for malignant neoplasm of colon D12.5, Benign neoplasm of sigmoid colon K57.30, Diverticulosis of large intestine without perforation or abscess without bleeding Q43.8, Other specified congenital malformations of intestine CPT copyright 2017 [employer]. All rights reserved. The codes documented in this report are preliminary and upon avionics installer review may be revised to meet current compliance requirements. Ross Ng MD 11/27/2022 3:30:30 PM This report has been signed electronically. Number of Addenda: 0 Note Initiated On: 11/27/2022 2:06 PM
--- NOTE | 2022-11-27 15:31 | OP.CCLET_ITS ---
11/27/2022 Dano Vegas Re : Colonoscopy procedure for Payton Balderas Dear Dr. Vegas This procedure was performed on November. My impressions and recommendations are as follows: Impressions : - Preparation of the colon was fair. - Tortuous colon. - Diverticulosis in the sigmoid colon. No specimens collected. - One 5 mm, non-bleeding polyp in the sigmoid colon. Biopsied. - The examination was otherwise normal on direct and retroflexion views. Recommendations : - Discharge patient to home (via wheelchair). - High fiber diet today. - Continue present medications. - Await pathology results. - Repeat colonoscopy date to be determined after pending pathology results are reviewed for surveillance based on pathology results. - Telephone my office for pathology results in 1 week. My findings are described in the full procedure note, which is enclosed. If I can be of further assistance, please feel free to contact me at Doctor phone number(s): , Work: . Sincerely, Ross Ng MD 11/27/2022 3:30:30 PM This report has been signed electronically.
[2022-11-27 15:35] VITALS: BP 111/65; BP 138/71; PULSE 60; RESP 16; O2SAT 99
[2022-11-27 15:40] VITALS: BP 116/63; BP 138/71; PULSE 58; RESP 18; O2SAT 95
[2022-11-27 15:45] VITALS: BP 117/59; BP 138/71; PULSE 53; RESP 16; TEMP 36.4; O2SAT 96
[2022-11-27 15:56] VITALS: BP 138/71
== END 2022-11-27 16:15 | disposition home or self-care (01) ==
LOC: EN 13:26 → AC 13:26
PROVIDERS: PCP Family Medicine; Referring Provider Surgery; Visit Provider Surgery
PROC: 0DJD8ZZ Inspection of Lower Intestinal Tract, Via Natural or Artificial Opening Endoscopic (ICD-10-PCS; CPT 45378; principal; 2022-11-27 14:25)
DX: Z12.11 Encounter for screening for malignant neoplasm of colon (principal); K63.5 Polyp of colon; Q43.8 Other specified congenital malformations of intestine; I10 Essential (primary) hypertension; Z79.899 Other long term (current) drug therapy; Z79.82 Long term (current) use of aspirin
CPT/HCPCS: 45380; 88305; J7120; J2405

== ENCOUNTER → 2023-02-18 | Outpatient (CLI) | payer SELFPAY ==
[2023-03-13 11:50] LABS: HPV, High Risk Negative
== END | disposition home or self-care (01) ==
LOC: LABSPEC 15:12
PROVIDERS: PCP Family Medicine; Visit Provider Family Medicine
DX: Z01.419 Encounter for gynecological examination (general) (routine) without abnormal findings (principal)
CPT/HCPCS: 87623; 87624; 88142

== ENCOUNTER → 2023-05-04 | Outpatient (CLI) | payer SELFPAY ==
--- NOTE | 2023-05-04 13:09 | US_ITS ---
INDICATION: Thyroid nodules EXAMINATION: Ultrasound US Thyroid (eg thyroid, parathyroid, parotid) TECHNIQUE: Casey scale and color doppler imaging was performed of the thyroid gland. COMPARISON: 01/08/2022 FINDINGS: RIGHT THYROID LOBE: Surgically absent. LEFT THYROID LOBE: 6.7 x 3.3 x 2.5 cm. Homogeneous echotexture with normal vascularity. [2 thyroid nodules again demonstrated. Smaller nodule 0.9 x 0.7 x 0.5 cm, increased from prior study and remains stable and sonographic characteristics, TI-RADS level 2 or not suspicious. Second nodule measures 3.9 x 3.2 x 3.2 cm, increased from prior study and again is a TI-RADS level 2 or nonsuspicious nodule in sonographic characteristics. ISTHMUS: 4 mm. No thyroid nodules are present. US/Thyroid IMPRESSION: Status post right hemithyroidectomy. 2 left-sided thyroid nodules are mildly increased in size and remain TI-RADS level 2 or nonsuspicious. Electronically Signed: Alex Siddiqui MD at 18:58 EDT ,
== END | disposition home or self-care (01) ==
LOC: US 13:04
PROVIDERS: PCP Family Medicine; Referring Provider Surgery; Visit Provider Surgery
DX: E04.1 Nontoxic single thyroid nodule (principal)
CPT/HCPCS: 76536

== ENCOUNTER → 2023-05-12 | Outpatient (CLI) | payer SELFPAY ==
[2023-05-12 15:51] LABS: Free T3 2.7 pg/mL (2.18-3.98); T4 Total, Thyroxin 9.6 ug/dL (4.8-13.9); Thyroid Stim Hormone (TSH) 1.31 uIU/mL (0.358-3.74)
== END | disposition home or self-care (01) ==
PROVIDERS: PCP Family Medicine; Referring Provider Surgery; Visit Provider Surgery
DX: E01.0 Iodine-deficiency related diffuse (endemic) goiter (principal)
CPT/HCPCS: 36415; 84436; 84443; 84481

== ENCOUNTER → 2023-09-25 | Outpatient (CLI) | payer SELFPAY ==
--- NOTE | 2023-09-25 10:05 | BI_ITS ---
MAMMOGRAPHY - BILATERAL SCREENING REASON FOR EXAM: Female, 63 years old. Routine annual screening examination. PERTINENT HISTORY: Aunt with breast cancer. TECHNIQUE: Digital bilateral breast hany (3D mammographic acquisition) in the CC and MLO projections. 2-D mediolateral oblique (MLO) and craniocaudad (CC) views of both breasts were obtained. CAD: Full Field Digital Mammography with Computer Added Detection was performed. COMPARISON: Comparison is made with prior study dated September 24, 2022. FINDINGS: Breast Composition: There are scattered areas of fibroglandular density. There are no dominant masses or suspicious calcifications. No other significant abnormalities are identified. There has been no significant change since the prior study. BI/SCRN MAMM (CAD)W/HANY BILAT IMPRESSION: Stable bilateral screening mammogram. Yearly follow-up mammogram recommended. (A) ASSESSMENT CATEGORY: BIRADS Category 1: Negative. A letter regarding these results will be sent to the patient by the facility within 30 days. Approximately 10% of breast cancers are not detected by mammography. A normal mammogram should not delay biopsy of a clinically suspicious abnormality. [id number] Electronically Signed: Melchor Ye MD at 10:49 EST ,
== END | disposition home or self-care (01) ==
PROVIDERS: PCP Family Medicine; Referring Provider Family Medicine; Visit Provider Family Medicine
DX: Z12.31 Encounter for screening mammogram for malignant neoplasm of breast (principal)
CPT/HCPCS: 77063; 77067

== ENCOUNTER → 2024-04-22 | Outpatient (CLI) | payer SELFPAY ==
--- NOTE | 2024-04-22 14:02 | US_ITS ---
INDICATION: thyroid nodule EXAMINATION: Ultrasound US Thyroid (eg thyroid, parathyroid, parotid) TECHNIQUE: Casey scale and color doppler imaging was performed of the thyroid gland. COMPARISON: Prior study dated: 05/04/23 FINDINGS: RIGHT THYROID LOBE: Right thyroidectomy. LEFT THYROID LOBE: 6.7 x 2.6 x 2.9 cm, volume 26 mL. Previously 6.7 x 3.3 x 2.5 cm. Parenchyma: The gland echotexture is homogenous. Thyroid vascularity is normal. ISTHMUS: 0.4 cm in maximum AP dimension. Previously 0.4 cm. Estimated total number of nodules greater than equal to 1 cm: 1. Spray Technician nodules are described as follows: 1. Location: Left mid Size: 4.9 x 3.8 x 3.5 cm, volume 34.1 mL. Previously: 3.9 x 3.2 x 3.2 cm. Nodule characteristics: Composition: Mixed cystic and solid (1). Echogenicity: Isoechoic (1). Shape: Wider than tall (0). Margins: Smooth (0). Echogenic Foci: None (0). ACR TI-RADS total points: 2. Previous 2. ACR TI-RADS category: 2. Previous 2 Remaining nodules are subcentimeter. LYMPH NODES: No lymphadenopathy is seen in the tissue surrounding the thyroid gland. US/Thyroid IMPRESSION: Right thyroidectomy. Dominant left thyroid lobe nodule again noted mildly increased in size from prior. Based on the size and appearance, this requires no further specific follow-up. ACR TI-RADS RECOMMENDATION REFERENCE: Ultrasound-guided fine-needle aspiration, follow-up ultrasound, no further follow-up. *TR 1 (0 points) and TR 2 (2 points): No FNA or follow-up. *TR 3 (3 points): FNA if more than or equal to 2.5 cm in maximum dimension. Follow-up ultrasound in 1, 3, and 5 years if 1.5 to 2.4 cm in maximum dimension. *TR 4 (4-6 points): FNA if more than or equal to 1.5 cm in maximum dimension. Follow-up ultrasound in 1, 2, 3, and 5 years if 1 to 1.4 cm in maximum dimension. *TR 5 (more than or equal to 7 points): FNA if more than or equal to 1 cm in maximum dimension. Follow-up ultrasound every year for 5 years if 0.5 to 0.9 cm in maximum dimension. *TR 3, TR 4, or TR 5 nodules that are below the size threshold for follow-up receive no follow-up. Electronically Signed: Parth Pak MD at 1:12 EDT ,
== END | disposition home or self-care (01) ==
PROVIDERS: PCP Family Medicine; Referring Provider Surgery; Visit Provider Surgery
DX: E01.0 Iodine-deficiency related diffuse (endemic) goiter (principal)
CPT/HCPCS: 76536

== ENCOUNTER → 2024-05-17 | Outpatient (CLI) | payer SELFPAY ==
--- NOTE | 2024-05-17 | ASPSI_PTH ---
PATIENT: PHILOMENA QUESADA [facility] U[id number] AGE/SX: 63/F ROOM: RE05/17/[address]: Dr. Ross Ng MD : 1960 BED: DIS: 05/17/2024 SPEC #: [id number] RECD: 05/17/24 12:30 STATUS: CRISTIAN MICAH #: [id number] TERI: 05/17/24 00:[address]: Ross Ng DEPT: CYTOLOGY RECD BY: Parviz Patel ENTERED: 05/17/24 12:31 SP TYPE: ASP TONY OSBORNE DR: Dr. Dano Vegas, DO Tissues: A - Thyroid gland, NOS B - Thyroid gland, NOS Procedures: Surgery Specimen Level IV Cytospin Fluid Cytology Other HEADER OPERATION: Fine needle aspiration of thyroid nodule PRE-OP DIAGNOSIS: Thyroid nodule TISSUE SUBMITTED: A- Left mid thyroid fluid, B- Left mid thyroid slides DIAGNOSIS CYTOLOGY A. Left mid thyroid, fine needle aspiration (cytospin and cellblock): Consistent with benign follicular/colloid nodule, [place] Category II. Adequate for evaluation. B. Left mid thyroid, fine needle aspiration (smears): Consistent with benign follicular/colloid nodule, [place] Category II. Adequate for evaluation. 05/18/2024 COMMENT The [place] System for thyroid diagnostic categorization was used in the evaluation of this case. Correlation with clinical, radiologic findings and appropriate follow up are necessary. CYTOLOGY STUDY Slides are reviewed. CYTOLOGY GROSS A. Received is 30 ml of red fluid labeled with the patient's name and and designated per the requisition as Left mid thyroid. Submitted for cytology preparation including cell block. B. Received are 4 smears labeled with the patient's name and designated per the requisition as Left mid thyroid. Submitted for staining. Mr 05/17/2024 TC:5 CPT: 45850e6,53016
== END | disposition home or self-care (01) ==
LOC: LABSPEC 11:18
PROVIDERS: PCP Family Medicine; Referring Provider Surgery; Visit Provider Surgery
DX: E04.1 Nontoxic single thyroid nodule (principal)
CPT/HCPCS: 88108; 88161; 88305

== ENCOUNTER → 2024-05-23 | Outpatient (CLI) | payer SELFPAY ==
[2024-05-23 12:00] LABS: Free T3 2.9 pg/mL (2.18-3.98); T4 Total, Thyroxin 6.8 ug/dL (4.8-13.9)
== END | disposition home or self-care (01) ==
LOC: LAB 10:45
PROVIDERS: PCP Family Medicine; Referring Provider Surgery; Visit Provider Surgery
DX: E04.2 Nontoxic multinodular goiter (principal)
CPT/HCPCS: 36415; 84436; 84443; 84481

== ENCOUNTER → 2024-08-22 | Outpatient (CLI) | payer SELFPAY ==
--- NOTE | 2024-08-22 14:51 | CT_ITS ---
HISTORY: Thyroid nodule. TECHNIQUE: Helically acquired images were obtained of the neck after the intravenous administration of 100 mL Isovue 370. A radiation dose optimization technique was used for this scan. 328 images. COMPARISON: US 04/22/2024. FINDINGS: NASOPHARYNX: Unremarkable. SUPRAHYOID NECK: Unremarkable oropharynx, oral cavity, parapharyngeal space, and retropharyngeal space. INFRAHYOID NECK: Unremarkable larynx, hypopharynx, and supraglottis. THYROID: Heterogeneously enhancing 3.7 x 3.7 x 4.1 cm (3.5 x 3.8 x 4.9 cm on prior ultrasound) left thyroid nodule with mild rightward tracheal displacement. Smaller left thyroid nodules more superiorly. Right thyroidectomy. SALIVARY GLANDS: Homogeneous parotid and submandibular glands. LYMPH NODES: Left level 1 and level 2 lymph nodes measuring up to 1.1 cm and 1.2 cm. VASCULAR STRUCTURES: Patent bilateral internal jugular veins and carotid arteries. ORBITS: Symmetric contents. VISUALIZED PORTIONS OF THE PARANASAL SINUSES, MASTOID AIR CELLS: Unremarkable. OSSEOUS STRUCTURES: Mild degenerative changes of the cervical spine. LUNG APICES: Clear. CT/Soft Tissue Neck WITH Contrast IMPRESSION: 4.1 cm left thyroid nodule, which measured 4.9 cm on prior ultrasound Mildly enlarged left cervical lymph nodes, nonspecific. Electronically Signed: Ashlee Osman MD at 13:40 EST ,
[2024-08-22 15:23] LABS: CREATININE FINGERSTICK < 1.0 mg/dL (0.55-1.02); EGFR FINGERSTICK > 60.0000 mL/min (>60)
== END | disposition home or self-care (01) ==
PROVIDERS: PCP Family Medicine; Referring Provider Surgery; Visit Provider Surgery
DX: E01.0 Iodine-deficiency related diffuse (endemic) goiter (principal)
CPT/HCPCS: 70491; Q9967

== ENCOUNTER → 2024-09-02 | Outpatient (CLI) | payer SELFPAY ==
--- NOTE | 2024-09-02 09:32 | US_ITS ---
STUDY: ULTRASOUND BREAST - LEFT REASON FOR EXAM: Female, 64 years old. Left breast lump. TECHNIQUE: Axial and longitudinal images of the LEFT breast were performed with a high resolution ultrasound transducer. # OF IMAGES: 24 COMPARISON: Comparison is made with prior mammogram done earlier today. FINDINGS: LEFT Breast: The upper medial aspect of the left breast was examined with ultrasound. The palpable lump corresponds to a 1.4 cm x 1.4 cm x 0.6 cm hyperechoic nodule just deep to the skin surface. This most likely represents a lipoma. US/Breast Limited Unilateral IMPRESSION: The palpable lump corresponds to a 1.4 cm x 1.4 cm x 0.8 cm hyperechoic nodule suggestive of a lipoma. ASSESSMENT CATEGORY: BIRADS Category 2: Benign. A letter regarding these results will be sent to the patient by the facility within 30 days. Electronically Signed: Melchor Ye MD at 11:14 EST ,
--- NOTE | 2024-09-02 09:32 | BI_ITS ---
MAMMOGRAPHY - BILATERAL DIAGNOSTIC REASON FOR EXAM: Female, 64 years old. Palpable lump in the upper inner quadrant of the left breast. PERTINENT HISTORY: Aunt with breast cancer. TECHNIQUE: Digital bilateral breast fernando (3D mammographic acquisition) in the CC and MLO projections. 2-D mediolateral oblique (MLO) and craniocaudad (CC) views of both breasts were obtained. CAD: Full Field Digital Mammography with Computer Added Detection was performed. COMPARISON: Comparison is made with prior study September 25, 2023 and September 24, 2022. FINDINGS: Breast Composition: There are scattered areas of fibroglandular density. There are no dominant masses or suspicious calcifications. Stable small bilateral axillary lymph nodes. No other significant abnormalities are identified. There has been no significant change since the prior study. BI/DIAG MAMM W/CAD, BILAT IMPRESSION: Stable bilateral diagnostic mammogram. With the patient''s history of a palpable lump in the upper inner quadrant of the left breast, targeted sonographic correlation recommended. ASSESSMENT CATEGORY: BIRADS Category 0: Incomplete. Need additional imaging evaluation. A letter regarding these results will be sent to the patient by the facility within 30 days. Approximately 10% of breast cancers are not detected by mammography. A normal mammogram should not delay biopsy of a clinically suspicious abnormality. Electronically Signed: Melchor Ye MD at 10:22 EST ,
== END | disposition home or self-care (01) ==
LOC: OPBI 09:32
PROVIDERS: PCP Family Medicine; Referring Provider Physician Assistant; Visit Provider Physician Assistant
DX: N63.22 Unspecified lump in the left breast, upper inner quadrant (principal)
CPT/HCPCS: 76642; 77062; 77066; G0279

== ENCOUNTER → 2025-01-31 | Outpatient (CLI) | payer SELFPAY ==
[2025-01-31 16:01] LABS: Absolute Lymphocyte Count 1.63 X10^3/uL (0.83-4.51); Absolute Neutrophil Count 3.6 X10^3/uL (2.0-7.7); Basophil# 0.03 X10^3/uL; Basophil% 0.5 % (0-1); Eosinophils% 1.7 % (0-5); Hematocrit 40.4 % (37-47); Hemoglobin 13.4 g/dL (12.0-15.0); Lymphocyte # 1.63 X10^3/ul (0.83-4.51); Lymphocyte % 28.2 % (19-41); Mean Corp Hgb Conc 33.2 g/dL (32-36); Mean Corpuscular Hgb 29.5 pg (27.0-32.0); Mean Corpuscular Volume 88.8 fL (81-99); Mean Platelet Vol. 10.1 fl (6.2-12.0); Monocyte# 0.39 X10^3/uL; Monocyte% 6.7 % (0-10); NRBC Flagged by Analyzer 0 % (0-5); Neutrophil % 62.4 % (47-70); Platelet Count 268 K/mm3 (150-450); RBC Distribution Width CV 13.1 % (11.6-14.6); RBC Distribution Width SD 42.5 fl (35.1-43.9); Red Blood Count 4.55 M/mm3 (4.2-5.4); White Blood Count 5.8 K/mm3 (4.4-11.0)
[2025-01-31 16:37] LABS: Erythrocyte Sedimentation Rate 8 mm/hr (0-30)
[2025-01-31 17:06] LABS: ALB/GLOB Ratio 1.4 RATIO (0.9-2.4); AST(SGOT) 21 U/L (<=31); Alanine Aminotransfer ALT/SGPT 21 U/L (<=34); Albumin, Serum 4.2 g/dL (3.4-4.8); Alkaline Phosphatase 81 U/L (35-104); Anion Gap 10 (5-15); BUN 14 mg/dL (4-19); BUN/Creat Ratio 19.1 RATIO (10-20); Calcium,Total 9.4 mg/dL (7.6-11.0); Carbon Dioxide 26.9 mmol/L (21.0-32.0); Chloride 97 mmol/L (98-108); Creatinine, Serum 0.75 mg/dL (0.70-1.20); EST Glomerular Filtration Rate 89 (>60); Follicle Stimulating Hormone 73.9 mIU/mL; Glucose 98 mg/dL (70-99); Potassium 4.4 mmol/L (3.3-5.1); Protein, Total 7.2 g/dL (5.9-8.4); Sodium Level 134 mmol/L (133-145); Total Bilirubin 0.34 mg/dL (0.00-1.30)
== END | disposition home or self-care (01) ==
LOC: BIMLAB 12:01
PROVIDERS: PCP Family Medicine; Visit Provider Family Medicine
DX: I10 Essential (primary) hypertension (principal); E01.0 Iodine-deficiency related diffuse (endemic) goiter; M25.551 Pain in right hip; M25.552 Pain in left hip; M25.561 Pain in right knee; M25.562 Pain in left knee; G89.29 Other chronic pain; Z78.0 Asymptomatic menopausal state
CPT/HCPCS: 36415; 80053; 83001; 85025; 85652

== ENCOUNTER → 2025-05-24 | Outpatient (CLI) | payer SELFPAY ==
--- NOTE | 2025-05-24 16:02 | US_ITS ---
PROCEDURE: THYROID 05/24/2025 REASON FOR EXAM: THYROID NODULE TECHNIQUE: Procedure Code: USTHY Modality: US Procedure: THYROID COMPARISON: There are ultrasound, 04/22/2024 FINDINGS: Right thyroid lobe: Surgically absent. Left thyroid lobe size: 6.3 x 4.3 x 4.2 cm (was 6.7 x 2.9 x 2.6 cm) Upper pole, 10 x 8 x 7 mm (not documented previously), mixed cystic and solid, with a smooth margin. TR 2 Interpolar, 5.1 x 4.0 x 3.9 cm (was 4.9 x 3.8 x 3.5 cm), mixed cystic and solid, with a smooth margin. TR 2 Isthmus: 3 mm) was 4 mm US/Thyroid IMPRESSION: There is no recommendation for follow-up of TR 2 nodules. Reading Location: [place] [id number]
== END | disposition home or self-care (01) ==
PROVIDERS: PCP Family Medicine; Referring Provider Surgery; Visit Provider Surgery
DX: E04.1 Nontoxic single thyroid nodule (principal)
CPT/HCPCS: 76536